=== PATIENT | male | born 1990 | race Caucasian/White ===

== ENCOUNTER 2022-04-13 20:22 | Emergency (ER) | payer OTHER, SELFPAY ==
[2022-04-13 21:05] VITALS: BP 127/86; PULSE 86; RESP 18; TEMP 36.6; O2SAT 98; BMI 27.1
== END 2022-04-14 00:57 | disposition left against medical advice (07) ==
PROVIDERS: Emergency Provider Emergency Medicine
DX: M25.511 Pain in right shoulder (principal)
CPT/HCPCS: 99281

== ENCOUNTER 2022-07-06 10:59 | Emergency (ER) | payer BC, SELFPAY ==
--- NOTE | ~2022-07-06 | XR_ITS ---
EXAMINATION: XR ANKLE, RIGHT XR FOOT, RIGHT CLINICAL INFORMATION: Fall. Right ankle and foot pain. COMPARISON: None TECHNIQUE: AP, mortise, and lateral views of the right ankle. AP, oblique, and lateral views of the right foot. FINDINGS: No displaced fracture. No dislocation. The ankle mortise is maintained. No joint space narrowing or marginal osteophytes. No osseous erosion. No abnormal soft tissue calcification. Mild soft tissue swelling overlying the lateral aspect of the ankle and midfoot. XR/XR foot RT min 3V IMPRESSION: Mild soft tissue swelling overlying the lateral aspect of the ankle and midfoot. No displaced fracture.
--- NOTE | ~2022-07-06 | XR_ITS ---
EXAMINATION: XR ANKLE, RIGHT XR FOOT, RIGHT CLINICAL INFORMATION: Fall. Right ankle and foot pain. COMPARISON: None TECHNIQUE: AP, mortise, and lateral views of the right ankle. AP, oblique, and lateral views of the right foot. FINDINGS: No displaced fracture. No dislocation. The ankle mortise is maintained. No joint space narrowing or marginal osteophytes. No osseous erosion. No abnormal soft tissue calcification. Mild soft tissue swelling overlying the lateral aspect of the ankle and midfoot. XR/XR ankle RT min 3V IMPRESSION: Mild soft tissue swelling overlying the lateral aspect of the ankle and midfoot. No displaced fracture.
[2022-07-06 11:06] VITALS: BP 143/89; PULSE 86; RESP 18; TEMP 36.7; O2SAT 96; BMI 25.7
--- NOTE | 2022-07-06 11:16 | ED.FALL ---
HPI - Fall General Chief Complaint: Extremity Injury, Lower <MARIANO White Last Filed: 07/06/22 11:21> Stated Complaint: R foot inj <MARIANO White Last Filed: 07/06/22 11:21> Time Seen by Provider: 07/06/22 11:57 <MARIANO White Last Filed: 07/06/22 11:21> History of Present Illness HPI Narrative: patient complains of right foot and ankle pain after a fall yesterday with the foot bent underneath him, he fell about 5 ft and twisted his ankle and foot, denies any other injury no back pain no neck pain no headache no loss of consciousness he did not hit his head and denies any other extremity injury <MARIANO Schulte Last Filed: 07/06/22 12:36> Related Data Home Medications: Previous Rx's Medication Instructions Recorded acetaminophen 500 mg tablet 1,000 mg PO QID PRN pain #30 tabs 07/06/22 ibuprofen 600 mg tablet 600 mg PO Q6H PRN pain #20 tabs 07/06/22 oxycodone 5 mg tablet 5 mg PO Q6H PRN pain #10 tabs 07/06/22 <MARIANO White Last Filed: 07/06/22 11:21> Allergies/Adverse Reactions: Allergies Allergy/AdvReac Type Severity Reaction Status Date / Time No Known Allergies Allergy Unverified 04/05/20 19:30 [No Known Allergies*] <MARIANO White Last Filed: 07/06/22 11:21> Review of Systems Review of Systems: positive for right foot and ankle pain Negatives are in no headache no head injury no neck pain no numbness weakness or tingling no back pain no rib pain no chest pain no other extremity injuries, no laceration no numbness no weakness <MARIANO Schulte Last Filed: 07/06/22 12:36> Yes all other systems are reviewed and are negative <MARIANO Schulte Last Filed: 07/06/22 12:36> PMFSH Past Medical History Source: nursing notes reviewed <MARIANO Schulte Last Filed: 07/06/22 12:36> Social History Social History: Social History Advance Directives: Yes Advance Directives Information Provided: Yes Advance Directives on File: No <MARIANO White - Last Filed: 07/06/22 11:21> Physical Exam Vital Signs: Vital Signs: Last Vital Signs Temp 98.1 F 07/06/22 11:06 Pulse 86 07/06/22 11:06 Resp 18 07/06/22 11:06 BP 143/89 H 07/06/22 11:06 Pulse Ox 96 07/06/22 11:06 O2 Del Method 07/06/22 11:06 BMI result Body Mass Index 25.7 <MARIANO White - Last Filed: 07/06/22 11:21> Vital Signs: Last Vital Signs Temp 98.1 F 07/06/22 11:06 Pulse 86 07/06/22 11:06 Resp 18 07/06/22 11:06 BP 143/89 H 07/06/22 11:06 Pulse Ox 96 07/06/22 11:06 O2 Del Method 07/06/22 11:06 BMI result Body Mass Index 25.7 <MARIANO Schulte - Last Filed: 07/06/22 12:36> general appearance no distress Head is normocephalic atraumatic Neck is supple nontender Respiratory no distress The back full range of motion Extremities the right foot and ankle exam the foot has ecchymosis and swelling over the dorsal central foot, there is tenderness in both the medial aspect of the ankle and the whole dorsum of the foot worst in the central foot, ankle has limited range of motion and toes have limited range of motion likely secondary to swelling, sensation is intact distal, skin is intact Other extremities normal <MARIANO Schulte - Last Filed: 07/06/22 12:36> Course Course Course Narrative: RME-11:20pm - 31yoM presenting to the ED c c/o Right foot pain/swelling after he fell yesterday from a retaining wall today when he was messing around with his buddies trying a make a prank on them. Reports that he forgot that the retained wire was there and it was nighttime and he fell down 5 ft. Reports that he might of bumped his forehead although did not lose consciousness. He reports he does not need a scan of his head due to he is not having any headaches or dizziness or any changes in vision or any neurological symptoms. Reports right foot pain/swelling. Denies any other injuries complaints or concerns at this time. Plan: Right foot/ankle Xray ordered. Pt reports he does not need any more imaging <MARIANO White - Last Filed: 07/06/22 11:21> RME-11:20pm - 31yoM presenting to the ED c c/o Right foot pain/swelling after he fell yesterday from a retaining wall today when he was messing around with his buddies trying a make a prank on them. Reports that he forgot that the retained wire was there and it was nighttime and he fell down 5 ft. Reports that he might of bumped his forehead although did not lose consciousness. He reports he does not need a scan of his head due to he is not having any headaches or dizziness or any changes in vision or any neurological symptoms. Reports right foot pain/swelling. Denies any other injuries complaints or concerns at this time. Plan: Right foot/ankle Xray ordered. Pt reports he does not need any more imaging X-rays of right foot and ankle did not reveal any fractures, patient is given Aircast and postop shoe, will follow with orthopedics as needed <MARIANO Schulte - Last Filed: 07/06/22 12:36> Discharge Plan Discharge Clinical Impression: Right foot sprain <MARIANO White Last Filed: 07/06/22 11:21> Patient Disposition: Home, Self-Care <MARIANO White - Last Filed: 07/06/22 11:21> Additional Instructions: x-rays did not show any broken bone Should have improvement within week If not improving follow with orthopedist for re-evaluation Return to the ER any time any worse condition or any concerns Elevate leg apply ice <MARIANO White - Last Filed: 07/06/22 11:21> Prescriptions: New acetaminophen 500 mg tablet 1,000 mg PO QID PRN (Reason: pain) Qty: 30 0RF ibuprofen 600 mg tablet 600 mg PO Q6H PRN (Reason: pain) Qty: 20 0RF oxycodone 5 mg tablet 5 mg PO Q6H PRN (Reason: pain) Qty: 10 0RF Rx Instructions: Partial Fill upon patient request. <MARIANO White Last Filed: 07/06/22 11:21> Referrals: Eze Sharpe MD [Physician] - ( right foot sprain, unable to bear weight) <MARIANO White - Last Filed: 07/06/22 11:21> Stand Alone Forms: Work/School Release <MARIANO White - Last Filed: 07/06/22 11:21>
== END 2022-07-06 12:42 | disposition home or self-care (01) ==
PROVIDERS: Emergency Provider Emergency Medicine
DX: S93.601A Unspecified sprain of right foot, initial encounter (principal); X50.1XXA Overexertion from prolonged static or awkward postures, initial encounter; Y93.9 Activity, unspecified; Y92.9 Unspecified place or not applicable; Y99.9 Unspecified external cause status; Z79.899 Other long term (current) drug therapy
CPT/HCPCS: 73610; 73630; 99282; 99283

== ENCOUNTER 2022-07-31 19:18 | Inpatient (IN) | payer BC, SELFPAY ==
--- NOTE | ~2022-07-31 | XR_ITS ---
EXAMINATION: XR CHEST CLINICAL INFORMATION: Cough. COMPARISON: None TECHNIQUE: Frontal view of the chest was obtained. FINDINGS: The lungs are well-expanded with patchy consolidation left midlung likely infiltrate. Heart size and pulmonary vascularity is normal. There is no pleural effusion or thickening. There is a healed right posterior eighth rib fracture. XR/XR chest 1V IMPRESSION: Patchy consolidation/infiltrate left midlung.
[2022-07-31 19:25] VITALS: BP 122/65; PULSE 139; RESP 20; TEMP 38.6; O2SAT 97; BMI 25.7
--- NOTE | 2022-07-31 19:25 | ED.FEVER ---
HPI - Fever General Chief Complaint: Upper Respiratory Symptoms <Trini Seay NP - Last Filed: 07/31/22 19:27> Stated Complaint: flue like symptoms <Trini Seay NP - Last Filed: 07/31/22 19:27> Time Seen by Provider: 07/31/22 20:33 <Trini Seay NP - Last Filed: 07/31/22 19:27> Source: patient <Carl Josue MD - Last Filed: 07/31/22 23:35> Mode of arrival: ambulatory <Carl Josue MD - Last Filed: 07/31/22 23:35> Limitations: no limitations <Carl Josue MD - Last Filed: 07/31/22 23:35> History of Present Illness HPI Narrative: Patient with history of IV drug use clean for last 3 years presents with 3 days of fever, vomiting, diarrhea, headache, body aches, difficulty breathing, cough. Patient reports unable to maintain PO d/t vomiting and is concerned he might be dehydrated. Patient febrile in triage. Temperature of 101.5 degrees unable to eat much last 2 days abdominal pain vomiting mostly after coughing other family member sick with flu-like symptoms 1 week ago patient has not taken COVID or flu vaccine cough is mostly dry no shortness of breath <Carl Josue MD - Last Filed: 07/31/22 23:35> Related Data Home Medications: Previous Rx's Medication Instructions Recorded acetaminophen 500 mg tablet 1,000 mg PO QID PRN pain #30 tabs 07/06/22 ibuprofen 600 mg tablet 600 mg PO Q6H PRN pain #20 tabs 07/06/22 oxycodone 5 mg tablet 5 mg PO Q6H PRN pain #10 tabs 07/06/22 <Trini Seay NP - Last Filed: 07/31/22 19:27> Allergies/Adverse Reactions: Allergies Allergy/AdvReac Type Severity Reaction Status Date / Time No Known Allergies Allergy Verified 07/31/22 19:28 [No Known Allergies*] <Trini Seay NP - Last Filed: 07/31/22 19:27> Review of Systems Review of Systems: Yes all other systems are reviewed and are negative <Carl Josue MD - Last Filed: 07/31/22 23:35> [facility] Social History Social History: Social History Advance Directives: No Advance Directives Information Provided: No <Trini Seay NP - Last Filed: 07/31/22 19:27> Physical Exam Vital Signs: Vital Signs: Last Vital Signs Temp 100 F 07/31/22 21:39 Pulse 87 07/31/22 21:39 Resp 20 07/31/22 21:39 BP 122/65 07/31/22 19:25 Pulse Ox 97 07/31/22 19:25 O2 Del Method 07/31/22 19:25 BMI result Body Mass Index 25.7 <Trini Seay NP - Last Filed: 07/31/22 19:27> Vital Signs: Last Vital Signs Temp 100 F 07/31/22 21:39 Pulse 87 07/31/22 21:39 Resp 20 07/31/22 21:39 BP 122/65 07/31/22 19:25 Pulse Ox 97 07/31/22 19:25 O2 Del Method 07/31/22 19:25 BMI result Body Mass Index 25.7 <Carl Josue MD - Last Filed: 07/31/22 23:35> Appearance: Alert. Oriented X3. No acute distress. Eyes: PERRLA, No Nystagmus ENT: Pharynx normal. Oral Mucosa moist no exudate Neck: Normal inspection. Neck supple. No cervical lymphadenopathy CVS: Normal heart rate and rhythm. Pulses normal. Respiratory: No respiratory distress. Equal air entry bilateral, no wheezing/rales/rhonchi Abdomen: Soft and nontender. Bowel sounds are present, no mass palpable, no CVA tenderness Skin: Skin warm and dry. Normal skin color. Normal skin turgor. Extremities: No lower extremity edema. No calf tenderness Neuro: Oriented X 3. No motor deficit. No sensory deficit.No cerebellar signs , cranial nerves II-XII intact <Carl Josue MD - Last Filed: 07/31/22 23:35> Course Course Course Narrative: This is a rapid medical exam. Defer additional HPI, ROS, PE to primary provider. 31-year-old male no medical history presents with 3 days of fever, vomiting, diarrhea, headache, body aches, difficulty breathing, cough. Patient reports unable to maintain PO d/t vomiting and is concerned he might be dehydrated. Patient febrile in triage. Will obtain testing for flu, COVID, RSV, labs. Patient be given sublingual Zofran, Tylenol. <Trini Seay NP - Last Filed: 07/31/22 19:27> Medications Administered Generic Name Dose Route Start Last Admin Trade Name Freq PRN Reason Stop Dose Admin Azithromycin 500 mg/ Sodium 250 mls @ 125 mls/hr 07/31/22 22:02 07/31/22 23:22 Chloride IV 08/01/22 00:01 125 mls/hr ONCE ONE Administration Discontinued Medications Generic Name Dose Route Start Last Admin Trade Name Freq PRN Reason Stop Dose Admin Acetaminophen 650 mg 07/31/22 19:26 07/31/22 19:30 Acetaminophen 325 Mg Tablet PO 07/31/22 19:27 650 mg ONCE ONE Administration Sodium Chloride 1,000 mls @ 999 mls/hr 07/31/22 19:47 07/31/22 22:27 Ns IV 07/31/22 20:47 Infused .Q1H1M STA Infusion Sodium Chloride 1,000 mls @ 999 mls/hr 07/31/22 20:34 07/31/22 22:21 Ns IV 07/31/22 21:34 999 mls/hr .Q1H1M ONE Administration Potassium Chloride 10 meq in 100 mls @ 100 mls/hr 07/31/22 21:37 07/31/22 22:21 Potassium Chloride/H20 IV 07/31/22 22:36 100 mls/hr ONCE ONE Administration Sodium Chloride 1,000 mls @ 999 mls/hr 07/31/22 22:00 07/31/22 23:22 Ns IV 07/31/22 23:00 999 mls/hr .Q1H1M ONE Administration Ceftriaxone Sodium 1 gm/ 50 mls @ 100 mls/hr 07/31/22 22:01 07/31/22 22:43 Sodium Chloride IV 07/31/22 22:30 100 mls/hr ONCE ONE Administration Ketorolac Tromethamine 15 mg 07/31/22 19:48 07/31/22 20:52 Ketorolac Tromethamine 15 Mg/Ml Vial IVPUSH 07/31/22 19:49 15 mg ONCE ONE Administration Ondansetron HCl 4 mg 07/31/22 19:26 07/31/22 19:30 Ondansetron Odt 4 Mg Tab.Rapdis TRANSLINGU 07/31/22 19:27 4 mg ONCE ONE Administration Potassium Bicarbonate 25 meq 07/31/22 21:37 07/31/22 22:22 Potassium Bicarbonate/Cit Ac 25 Meq Tablet.Eff PO 07/31/22 21:38 25 meq ONCE ONE Administration <Trini Seay SET DESIGNER - Last Filed: 07/31/22 19:27> Medications Administered Generic Name Dose Route Start Last Admin Trade Name Freq PRN Reason Stop Dose Admin Azithromycin 500 mg/ Sodium 250 mls @ 125 mls/hr 07/31/22 22:02 07/31/22 23:22 Chloride IV 08/01/22 00:01 125 mls/hr ONCE ONE Administration Discontinued Medications Generic Name Dose Route Start Last Admin Trade Name Freq PRN Reason Stop Dose Admin Acetaminophen 650 mg 07/31/22 19:26 07/31/22 19:30 Acetaminophen 325 Mg Tablet PO 07/31/22 19:27 650 mg ONCE ONE Administration Sodium Chloride 1,000 mls @ 999 mls/hr 07/31/22 19:47 07/31/22 22:27 Ns IV 07/31/22 20:47 Infused .Q1H1M STA Infusion Sodium Chloride 1,000 mls @ 999 mls/hr 07/31/22 20:34 07/31/22 22:21 Ns IV 07/31/22 21:34 999 mls/hr .Q1H1M ONE Administration Potassium Chloride 10 meq in 100 mls @ 100 mls/hr 07/31/22 21:37 07/31/22 22:21 Potassium Chloride/H20 IV 07/31/22 22:36 100 mls/hr ONCE ONE Administration Sodium Chloride 1,000 mls @ 999 mls/hr 07/31/22 22:00 07/31/22 23:22 Ns IV 07/31/22 23:00 999 mls/hr .Q1H1M ONE Administration Ceftriaxone Sodium 1 gm/ 50 mls @ 100 mls/hr 07/31/22 22:01 07/31/22 22:43 Sodium Chloride IV 07/31/22 22:30 100 mls/hr ONCE ONE Administration Ketorolac Tromethamine 15 mg 07/31/22 19:48 07/31/22 20:52 Ketorolac Tromethamine 15 Mg/Ml Vial IVPUSH 07/31/22 19:49 15 mg ONCE ONE Administration Ondansetron HCl 4 mg 07/31/22 19:26 07/31/22 19:30 Ondansetron Odt 4 Mg Tab.Rapdis TRANSLINGU 07/31/22 19:27 4 mg ONCE ONE Administration Potassium Bicarbonate 25 meq 07/31/22 21:37 07/31/22 22:22 Potassium Bicarbonate/Cit Ac 25 Meq Tablet.Eff PO 07/31/22 21:38 25 meq ONCE ONE Administration <Carl Josue MD - Last Filed: 07/31/22 23:35> Medical Decision Making Medical Decision Making [facility] Narrative: 2300 PATIENT CAME WITH FEVER COUGH NAUSEA VOMITING SUSPECTED TO BE INFLUENZA BUT INFLUENZA COVID AND RSV NEGATIVE CHEST X-RAY SHOWED LEFT UPPER LOBE PNEUMONIA BLOOD CULTURES LACTIC ACID WERE DRAWN PATIENT RECEIVED IV ANTIBIOTIC ROCEPHIN AND ZITHROMAX FLUIDS WERE GIVEN ADMITTED FOR PNEUMONIA LEUKOCYTOSIS AND FEVER <Carl Josue MD - Last Filed: 07/31/22 23:35> Lab Data [facility] Lab Attestation statement: I reviewed the patient's lab results. <Carl Josue MD - Last Filed: 07/31/22 23:35> Result Diagrams: 07/31/22 20:10 07/31/22 20:10 <Tirni Seay NP - Last Filed: 07/31/22 19:27> Labs: Lab Results 07/31/22 07/31/22 07/31/22 Range/Units 19:55 20:10 20:10 WBC 29.9 H (4.8-10.8) X10*3/uL RBC 3.56 L (4.60-5.80) X10*6/uL Hgb 14.3 (14.0-18.0) g/dl Hct 38.7 L (42.0-52.0) % MCV 108.7 H (80.0-98.0) fL MCH 40.2 H (27.0-33.0) pg MCHC 37.0 H (31.0-36.0) g/dl RDW 12.7 (11.0-16.0) % Plt Count 183 (160-400) X10*3/uL MPV 11.0 (9.4-12.4) fL Immature Gran % (Auto) 0.6 H (0.0-0.4) % Neut % (Auto) 90.4 H (45-73) % Lymph % (Auto) 1.9 L (20-40) % Hand % (Auto) 6.6 (2-11) % Eos % (Auto) 0.2 (0-4) % Baso % (Auto) 0.3 (0-2) % Lymph # (Auto) 0.6 L (1.2-4.9) X10*3/uL Hand # (Auto) 2.0 H (0.1-1.2) X10*3/uL Eos # (Auto) 0.1 (0.0-0.4) X10*3/uL Baso # (Auto) 0.1 (0.0-0.2) X10*3/uL Abs Immat Gran (auto) 0.18 H (0.00-0.03) X10*3/uL Absolute Neuts (auto) 27.1 H (2.0-8.3) x10*3/uL Absolute Nucleated RBC 0.000 (0.0-0.012) X10*3/uL Nucleated RBC % (auto) 0.0 (0.0-0.2) /100WBC Sodium 135 (135-145) mmol/L Potassium 2.8 L (3.3-5.1) mmol/L Chloride 94 L (96-108) mmol/L Carbon Dioxide 22 (22-29) mmol/L Anion Gap 22 H (12-20) BUN 6 L (9-16) mg/dL Creatinine 0.86 (0.5-1.4) mg/dL Estim Creat Clear Calc 134.0 Estimated GFR > 60 Random Glucose 147 H (60-115) mg/dL Lactic Acid (0.5-2.0) mmol/L Calcium 7.7 L (8.4-10.2) mg/dL Total Bilirubin 2.2 H (0.0-1.0) mg/dL Direct Bilirubin 1.0 H (0.0-0.5) mg/dL AST 95 H (5-37) U/L ALT 41 H (0-40) U/L Alkaline Phosphatase 205 H (39-117) U/L Total Protein 7.6 (6.5-8.0) g/dL Albumin 3.9 (3.5-5.0) g/dL Influenza Type A (PCR) NEGATIVE (Negative) Influenza Type B (PCR) NEGATIVE (Negative) RSV RNA Qual (PCR) NEGATIVE (Negative) SARS-CoV-2 RNA (RT-PCR) NEGATIVE (Negative) S. pyogenes GrpA [place] (Negative) 07/31/22 07/31/22 Range/Units 20:52 22:19 WBC (4.8-10.8) X10*3/uL RBC (4.60-5.80) X10*6/uL Hgb (14.0-18.0) g/dl Hct (42.0-52.0) % MCV (80.0-98.0) fL MCH (27.0-33.0) pg MCHC (31.0-36.0) g/dl RDW (11.0-16.0) % Plt Count (160-400) X10*3/uL MPV (9.4-12.4) fL Immature Gran % (Auto) (0.0-0.4) % Neut % (Auto) (45-73) % Lymph % (Auto) (20-40) % Hand % (Auto) (2-11) % Eos % (Auto) (0-4) % Baso % (Auto) (0-2) % Lymph # (Auto) (1.2-4.9) X10*3/uL Hand # (Auto) (0.1-1.2) X10*3/uL Eos # (Auto) (0.0-0.4) X10*3/uL Baso # (Auto) (0.0-0.2) X10*3/uL Abs Immat Gran (auto) (0.00-0.03) X10*3/uL Absolute Neuts (auto) (2.0-8.3) x10*3/uL Absolute Nucleated RBC (0.0-0.012) X10*3/uL Nucleated RBC % (auto) (0.0-0.2) /100WBC Sodium (135-145) mmol/L Potassium (3.3-5.1) mmol/L Chloride (96-108) mmol/L Carbon Dioxide (22-29) mmol/L Anion Gap (12-20) BUN (9-16) mg/dL Creatinine (0.5-1.4) mg/dL Estim Creat Clear Calc Estimated GFR Random Glucose (60-115) mg/dL Lactic Acid 1.4 (0.5-2.0) mmol/L Calcium (8.4-10.2) mg/dL Total Bilirubin (0.0-1.0) mg/dL Direct Bilirubin (0.0-0.5) mg/dL AST (5-37) U/L ALT (0-40) U/L Alkaline Phosphatase (39-117) U/L Total Protein (6.5-8.0) g/dL Albumin (3.5-5.0) g/dL Influenza Type A (PCR) (Negative) Influenza Type B (PCR) (Negative) RSV RNA Qual (PCR) (Negative) SARS-CoV-2 RNA (RT-PCR) (Negative) S. pyogenes GrpA [place] Negative (Negative) <Trini Seay, SET DESIGNER - Last Filed: 07/31/22 19:27> Lab Results 07/31/22 07/31/22 07/31/22 Range/Units 19:55 20:10 20:10 WBC 29.9 H (4.8-10.8) X10*3/uL RBC 3.56 L (4.60-5.80) X10*6/uL Hgb 14.3 (14.0-18.0) g/dl Hct 38.7 L (42.0-52.0) % MCV 108.7 H (80.0-98.0) fL MCH 40.2 H (27.0-33.0) pg MCHC 37.0 H (31.0-36.0) g/dl RDW 12.7 (11.0-16.0) % Plt Count 183 (160-400) X10*3/uL MPV 11.0 (9.4-12.4) fL Immature Gran % (Auto) 0.6 H (0.0-0.4) % Neut % (Auto) 90.4 H (45-73) % Lymph % (Auto) 1.9 L (20-40) % Hand % (Auto) 6.6 (2-11) % Eos % (Auto) 0.2 (0-4) % Baso % (Auto) 0.3 (0-2) % Lymph # (Auto) 0.6 L (1.2-4.9) X10*3/uL Hand # (Auto) 2.0 H (0.1-1.2) X10*3/uL Eos # (Auto) 0.1 (0.0-0.4) X10*3/uL Baso # (Auto) 0.1 (0.0-0.2) X10*3/uL Abs Immat Gran (auto) 0.18 H (0.00-0.03) X10*3/uL Absolute Neuts (auto) 27.1 H (2.0-8.3) x10*3/uL Absolute Nucleated RBC 0.000 (0.0-0.012) X10*3/uL Nucleated RBC % (auto) 0.0 (0.0-0.2) /100WBC Sodium 135 (135-145) mmol/L Potassium 2.8 L (3.3-5.1) mmol/L Chloride 94 L (96-108) mmol/L Carbon Dioxide 22 (22-29) mmol/L Anion Gap 22 H (12-20) BUN 6 L (9-16) mg/dL Creatinine 0.86 (0.5-1.4) mg/dL Estim Creat Clear Calc 134.0 Estimated GFR > 60 Random Glucose 147 H (60-115) mg/dL Lactic Acid (0.5-2.0) mmol/L Calcium 7.7 L (8.4-10.2) mg/dL Total Bilirubin 2.2 H (0.0-1.0) mg/dL Direct Bilirubin 1.0 H (0.0-0.5) mg/dL AST 95 H (5-37) U/L ALT 41 H (0-40) U/L Alkaline Phosphatase 205 H (39-117) U/L Total Protein 7.6 (6.5-8.0) g/dL Albumin 3.9 (3.5-5.0) g/dL Influenza Type A (PCR) NEGATIVE (Negative) Influenza Type B (PCR) NEGATIVE (Negative) RSV RNA Qual (PCR) NEGATIVE (Negative) SARS-CoV-2 RNA (RT-PCR) NEGATIVE (Negative) S. pyogenes GrpA [place] (Negative) 07/31/22 07/31/22 Range/Units 20:52 22:19 WBC (4.8-10.8) X10*3/uL RBC (4.60-5.80) X10*6/uL Hgb (14.0-18.0) g/dl Hct (42.0-52.0) % MCV (80.0-98.0) fL MCH (27.0-33.0) pg MCHC (31.0-36.0) g/dl RDW (11.0-16.0) % Plt Count (160-400) X10*3/uL MPV (9.4-12.4) fL Immature Gran % (Auto) (0.0-0.4) % Neut % (Auto) (45-73) % Lymph % (Auto) (20-40) % Hand % (Auto) (2-11) % Eos % (Auto) (0-4) % Baso % (Auto) (0-2) % Lymph # (Auto) (1.2-4.9) X10*3/uL Hand # (Auto) (0.1-1.2) X10*3/uL Eos # (Auto) (0.0-0.4) X10*3/uL Baso # (Auto) (0.0-0.2) X10*3/uL Abs Immat Gran (auto) (0.00-0.03) X10*3/uL Absolute Neuts (auto) (2.0-8.3) x10*3/uL Absolute Nucleated RBC (0.0-0.012) X10*3/uL Nucleated RBC % (auto) (0.0-0.2) /100WBC Sodium (135-145) mmol/L Potassium (3.3-5.1) mmol/L Chloride (96-108) mmol/L Carbon Dioxide (22-29) mmol/L Anion Gap (12-20) BUN (9-16) mg/dL Creatinine (0.5-1.4) mg/dL Estim Creat Clear Calc Estimated GFR Random Glucose (60-115) mg/dL Lactic Acid 1.4 (0.5-2.0) mmol/L Calcium (8.4-10.2) mg/dL Total Bilirubin (0.0-1.0) mg/dL Direct Bilirubin (0.0-0.5) mg/dL AST (5-37) U/L ALT (0-40) U/L Alkaline Phosphatase (39-117) U/L Total Protein (6.5-8.0) g/dL Albumin (3.5-5.0) g/dL Influenza Type A (PCR) (Negative) Influenza Type B (PCR) (Negative) RSV RNA Qual (PCR) (Negative) SARS-CoV-2 RNA (RT-PCR) (Negative) S. pyogenes GrpA [place] Negative (Negative) <Carl Josue MD - Last Filed: 07/31/22 23:35> Discharge Plan Discharge Clinical Impression: Pneumonia, Acute hypokalemia, Gastroenteritis <Trini Seay NP - Last Filed: 07/31/22 19:27> Patient Disposition: Admitted As Inpatient <Trini Seay NP - Last Filed: 07/31/22 19:27>
[2022-07-31] MEDS: Ondansetron ODT 4 MG TAB.RAPDIS TRANSLINGU (19:30)
[2022-07-31] MEDS: Acetaminophen 325 MG TABLET 650 MG PO (19:30)
--- OUTSIDE RECORDS SUMMARY | 2022-07-31 20:00 | XMS_ITS ---
:1990 Author Care Team Providers Name Role Phone Patient_import Primary Care Provider Unavailable Allergies Code Code System Name Reaction Severity Status Onset NKDA ? Medications Name Status Start Date Stop Date ? ? acetaminophen 500 mg tablet Active ? Not available albuterol sulfate HFA 90 mcg/actuation aerosol Active ? Not available inhaler amoxicillin 500 mg capsule Completed ? 01/24 amoxicillin 500 mg tablet Completed ? 2020 amoxicillin 875 mg-potassium clavulanate 125 mg Completed ? 01/24/2021 tablet benzonatate 100 mg capsule Completed ? 01/24 chlorhexidine gluconate 0.12 % mouthwash Completed ? 01/24/2021 Flovent HFA 110 mcg/actuation aerosol inhaler Completed ? 01/24/2021 ibuprofen 600 mg tablet Completed ? 01/25/20 Narcan 4 mg/actuation nasal spray Completed ? 01/24/2021 ondansetron HCl 4 mg tablet Completed ? 02/2021 oxycodone 5 mg tablet Completed ? 01/24/2021 oxycodone-acetaminophen 5 mg-325 mg tablet Completed ? 01/24/2021 Sublocade 100 mg/0.5 mL solution,extended release subcutaneous s yringe Active ? Not available Inject 0.5 mL every month by subcutaneous route. Suboxone 12 mg-3 mg sublingual film Completed ? 01/24/2021 Suboxone 4 mg-1 mg sublingual film Active ? Not available Place 1 film every day by sublingual route. Suboxone 8 mg-2 mg sublingual film Active ? Not available Place 1 film every day by sublingual route. Tylenol Completed 10/06/2018 01/24/2021 Problems Name Status Onset Date Source ? Anxiety Active 10/06/2018 History Opioid Dependence Active 10/06/2018 History Attention Deficit Hyperactivity Disorder Active 019 History Chronic Hepatitis C Active 10/20/2018 History Nicotine Dependence with Current Use Active 03/21/2021 History Notes: ADHD NOT DIAGNOSED BUT PT THINK S HE HAS IT AND IS SEEKING EVALUATION/DIAGNOSIS Procedures Notes: HAD ABDOMINAL SURGERY A NEWB ORN Results Lab Results Date Name Specimen Result Interpretation Description Value Range Status Address ? 04/29/2022 Drug UR ? Amphetamines negative NG/mL 1,000 Final [facility] Screen, NG/mL Health: Urine [address], [place] ? ? UR ? Benzodiazapines negative NG/mL 200 Final [facility] NG/mL Health: [address], [place] ? ? UR ABNORMAL Buprenorphine negative NG/mL 5 Final [facility] NG/mL Health: [address], [place] ? ? UR ? Cocaine negative NG/mL 150 Final [facility] Metabolite NG/mL Health : [address], [place] ? ? UR ? Opiates negative NG/mL 300 Final [facility] NG/mL Health: [address], [place] ? ? UR ? Oxycodone negative NG/mL 300 Final [facility] NG/mL Health: [address], [place] ? ? UR ? Fentanyl negative NG/mL 2 Final [facility] NG/mL Health: [address], [place] ? ? UR ? Ethyl Alcohol negative mg/dL 10 F inal [facility] mg/dL Health: [address], [place] ? ? UR ? Methadone negative NG/mL 300 Final [facility] Metabolite NG/mL Health : [address], [place] ? ? UR ABNORMAL Cannabinoids positive NG/mL 50 Final [facility] (THC) NG/mL Health: [address], [place] ? ? UR ? Urine Creatinine 277.0 mg/dL >20 F inal [facility] mg/dL Health: [address], [place] ? ? UR ? Urine pH 5.90 4.5-9. Final [facility] 0 Health: [address], [place] ? ? UR High Specific Mammoth 1.045 1.003- Final [facility] 1.035 Health: [address], [place] 04/29/2022 Opiates, UR ? 6-Acetylmorphine negative NG/mL 10 Final [facility] Quantita NG/mL Health: tive, [address], [place] ? ? UR ? Codeine negative NG/mL 50 Final [facility] NG/mL Health: [address], [place] ? ? UR ? Hydrocodone negative NG/mL 50 [place] [facility] NG/mL Health: [address], [place] ? ? UR ? Hydromorphone negative NG/mL 50 F inal [facility] NG/mL Health: [address], [place] ? ? UR ? Morphine negative NG/mL 50 Final [facility] NG/mL Health: [address], [place] ? ? UR ? Norhydrocodone negative NG/mL 100 Final [facility] NG/mL Health: [address], [place] ? ? UR ? Fentanyl negative NG/mL 20 Final [facility] NG/mL Health: [address], [place] ? ? UR ? Norfentanyl negative NG/mL 20 Fin [place] [facility] NG/mL Health: [address], [place] ? ? UR ? Tramadol negative NG/mL 100 Final [facility] NG/mL Health: [address], [place] ? ? UR ? Legend abbreviations ? Final Sa michelle Health: [address], [place] ? ? UR ? Billing Only billing only ? Lynsey l [facility] ([id number]) Health: [address], [place] 04/29/2022 Drug UR ? Buprenorphine 27.7 NG/mL 10 F inal [facility] Confirma NG/mL Health: tion, [address], [place] ? ? UR ABNORMAL Norbuprenorphine negative NG/mL 10 Final [facility] NG/mL Health: [address], [place] ? ? UR ? Legend abbreviations ? Final Sa michelle Health: [address], [place] 03/31/2022 Drug UR ? Amphetamines negative NG/mL 1,000 Final [facility] Screen, NG/mL Health: Urine [address], [place] ? ? UR ? Benzodiazapines negative NG/mL 200 Final [facility] NG/mL Health: [address], [place] ? ? UR ABNORMAL Buprenorphine negative NG/mL 5 Final [facility] NG/mL Health: [address], [place] ? ? UR ? Cocaine negative NG/mL 150 Final [facility] Metabolite NG/mL Health : [address], [place] ? ? UR ? Opiates negative NG/mL 300 Final [facility] NG/mL Health: [address], [place] ? ? UR ? Oxycodone negative NG/mL 300 Final [facility] NG/mL Health: [address] ? ? UR ? Fentanyl negative NG/mL 2 Final [facility] NG/mL Health: [address], [place] ? ? UR ABNORMAL Ethyl Alcohol positive mg/dL 10 Final [facility] mg/dL Health: [address], [place] ? ? UR ? Methadone negative NG/mL 300 Final [facility] Metabolite NG/mL Health : [address], [place] ? ? UR ABNORMAL Cannabinoids positive NG/mL 50 Final [facility] (THC) NG/mL Health: [address], [place] ? ? UR ? Urine Creatinine 380.6 mg/dL >20 F inal [facility] mg/dL Health: [address], [place] ? ? UR ? Urine pH 5.70 4.5-9. Final [facility] 0 Health: [address] ? ? UR ? Specific Mammoth 1.026 1.003- Final [facility] 1.035 Health: [address] [place] 03/31/2022 Opiates, UR ? 6-Acetylmorphine negative NG/mL 10 Final [facility] Quantita NG/mL Health: tive, 12 [address], [place] ? ? UR ? Codeine negative NG/mL 50 Final [facility] NG/mL Health: [address], [place] ? ? UR ? Hydrocodone negative NG/mL 50 [place] [facility] NG/mL Health: [address], [place] ? ? UR ? Hydromorphone negative NG/mL 50 F inal [facility] NG/mL Health: [address], [place] ? ? UR ? Morphine negative NG/mL 50 Final [facility] NG/mL Health: [address], [place] ? ? UR ? Norhydrocodone negative NG/mL 100 Final [facility] NG/mL Health: [address], [place] ? ? UR ? Fentanyl negative NG/mL 20 Final [facility] NG/mL Health: [address], [place] ? ? UR ? Norfentanyl negative NG/mL 20 [place] [facility] NG/mL Health: [address], [place] ? ? UR ? Tramadol negative NG/mL 100 Final [facility] NG/mL Health: [address], [place] ? ? UR ? Legend abbreviations ? Final Sa michelle Health: [address], [place] ? ? UR ? Billing Only billing only ? Lynsey l [facility] ([id number]) Health: [address], [place] 03/31/2022 Drug UR ? Buprenorphine 75.0 NG/mL 10 F inal [facility] Confirma NG/mL Health: tion, 12 [address], [place] ? ? UR ? Norbuprenorphine 13.4 NG/mL 10 Fi nal [facility] NG/mL Health: [address], [place] ? ? UR ? Legend abbreviations ? Final Sa michelle Health: [address] 03/03/2022 Drug UR ? Amphetamines negative NG/mL 1,000 Final [facility] Screen, NG/mL Health: Urine [address], [place] ? ? UR ? Benzodiazapines negative NG/mL 200 Final [facility] NG/mL Health: [address], [place] ? ? UR ? Buprenorphine positive NG/mL 5 F inal [facility] NG/mL Health: [address], [place] ? ? UR ? Cocaine negative NG/mL 150 Final [facility] Metabolite NG/mL Health : [address], [place] ? ? UR ? Opiates negative NG/mL 300 Final [facility] NG/mL Health: [address], [place] ? ? UR ? Oxycodone negative NG/mL 300 Final [facility] NG/mL Health: [address], [place] ? ? UR ? Fentanyl negative NG/mL 2 Final [facility] NG/mL Health: [address], [place] ? ? UR ABNORMAL Ethyl Alcohol positive mg/dL 10 Final [facility] mg/dL Health: [address], [place] ? ? UR ? Methadone negative NG/mL 300 Final [facility] Metabolite NG/mL Health : [address], [place] ? ? UR ABNORMAL Cannabinoids positive NG/mL 50 Final [facility] (THC) NG/mL Health: [address], [place] ? ? UR ? Urine Creatinine 284.0 mg/dL >20 F inal [facility] mg/dL Health: [address], [place] ? ? UR ? Urine pH 5.60 4.5-9. Final [facility] 0 Health: [address], [place] ? ? UR ? Specific Mammoth 1.033 1.003- Final [facility] 1.035 Health: [address], [place] 03/03/2022 Drug UR ? Buprenorphine 198.6 NG/mL 10 Final [facility] Confirma NG/mL Health: tion, [address], [place] ? ? UR ? Norbuprenorphine 14.6 NG/mL 10 Fi nal [facility] NG/mL Health: [address], [place] ? ? UR ? Legend abbreviations ? Final Sa michelle Health: [address], [place] ? ? UR ? Billing Only billing only ? Lynsey l [facility] ([id number]) Health: [address], [place] 02/03/2022 Drug UR ? Amphetamines negative NG/mL 1,000 Final [facility] Screen, NG/mL Health: Urine [address], [place] ? ? UR ? Benzodiazapines negative NG/mL 200 Final [facility] NG/mL Health: [address], [place] ? ? UR ? Buprenorphine positive NG/mL 5 F inal [facility] NG/mL Health: [address], [place] ? ? UR ? Cocaine negative NG/mL 150 Final [facility] Metabolite NG/mL Health : [address], [place] ? ? UR ? Opiates negative NG/mL 300 Final [facility] NG/mL Health: [address], [place] ? ? UR ? Oxycodone negative NG/mL 300 Final [facility] NG/mL Health: [address], [place] ? ? UR ? Fentanyl negative NG/mL 2 Final [facility] NG/mL Health: [address], [place] ? ? UR ABNORMAL Ethyl Alcohol positive mg/dL 10 Final [facility] mg/dL Health: [address], [place] ? ? UR ? Methadone negative NG/mL 300 Final [facility] Metabolite NG/mL Health : [address], [place] ? ? UR ABNORMAL Cannabinoids positive NG/mL 50 Final [facility] (THC) NG/mL Health: [address], [place] ? ? UR ? Urine Creatinine >400, >400 >20 Fi nal [facility] mg/dL mg/dL Health: [address], [place] ? ? UR ? Urine pH 5.80 4.5-9. Final [facility] 0 Health: [address], [place] ? ? UR ? Specific Mammoth 1.035 1.003- Final [facility] 1.035 Health: [address], [place] 02/03/2022 Drug UR ? Buprenorphine 408.6 NG/mL 10 Final [facility] Confirma NG/mL Health: tion, 12 [address], [place] ? ? UR ? Norbuprenorphine 48.2 NG/mL 10 Fi nal [facility] NG/mL Health: [address], [place] ? ? UR ? Legend abbreviations ? Final Sa michelle Health: [address], [place] ? ? UR ? Billing Only billing only ? Lynsey l [facility] ([id number]) Health: [address] [place] 01/02/2022 Drug UR ? Amphetamines negative NG/mL 1,000 Final [facility] Screen, NG/mL Health: Urine [address], [place] ? ? UR ? Benzodiazapines negative NG/mL 200 Final [facility] NG/mL Health: [address], [place] ? ? UR ? Buprenorphine positive NG/mL 5 F inal [facility] NG/mL Health: [address], [place] ? ? UR ? Cocaine negative NG/mL 150 Final [facility] Metabolite NG/mL Health : [address], [place] ? ? UR ? Opiates negative NG/mL 300 Final [facility] NG/mL Health: [address], [place] ? ? UR ? Oxycodone negative NG/mL 300 Final [facility] NG/mL Health: [address], [place] ? ? UR ? Fentanyl negative NG/mL 2 Final [facility] NG/mL Health: [address], [place] ? ? UR ABNORMAL Ethyl Alcohol positive mg/dL 10 Final [facility] mg/dL Health: [address], [place] ? ? UR ? Methadone negative NG/mL 300 Final [facility] Metabolite NG/mL Health : [address], [place] ? ? UR ABNORMAL Cannabinoids positive NG/mL 50 Final [facility] (THC) NG/mL Health: [address], [place] ? ? UR ? Urine Creatinine 340.3 mg/dL >20 F inal [facility] mg/dL Health: [address], [place] ? ? UR ? Urine pH 5.70 4.5-9. Final [facility] 0 Health: [address], [place] ? ? UR ? Specific Mammoth 1.024 1.003- Final [facility] 1.035 Health: [address] 01/02/2022 Drug UR ? Buprenorphine 91.7 NG/mL 10 F inal [facility] Confirma NG/mL Health: tion, 12 [address], [place] ? ? UR ? Norbuprenorphine 46.0 NG/mL 10 Fi nal [facility] NG/mL Health: [address], [place] ? ? UR ? Legend abbreviations ? Final Sa michelle Health: [address], [place] ? ? UR ? Billing Only billing only ? Lynsey tomas [facility] ([id number]) Health: [address] 12/04/2021 Drug UR ? Amphetamines negative NG/mL 1,000 Final [facility] Screen, NG/mL Health: Urine [address], [place] ? ? UR ? Benzodiazapines negative NG/mL 200 Final [facility] NG/mL Health: [address], [place] ? ? UR ? Buprenorphine positive NG/mL 5 F inal [facility] NG/mL Health: [address], [place] ? ? UR ? Cocaine negative NG/mL 150 Final [facility] Metabolite NG/mL Health : [address], [place] ? ? UR ? Opiates negative NG/mL 300 Final [facility] NG/mL Health: [address], [place] ? ? UR ? Oxycodone negative NG/mL 300 Final [facility] NG/mL Health: [address], [place] ? ? UR ? Fentanyl negative NG/mL 2 Final [facility] NG/mL Health: [address], [place] ? ? UR ABNORMAL Ethyl Alcohol positive mg/dL 10 Final [facility] mg/dL Health: [address], [place] ? ? UR ? Methadone negative NG/mL 300 Final [facility] Metabolite NG/mL Health : [address], [place] ? ? UR ABNORMAL Cannabinoids positive NG/mL 50 Final [facility] (THC) NG/mL Health: [address], [place] ? ? UR ? Urine Creatinine 287.5 mg/dL >20 F inal [facility] mg/dL Health: [address], [place] ? ? UR ? Urine pH 6.00 4.5-9. Final [facility] 0 Health: [address], [place] ? ? UR ? Specific Mammoth 1.034 1.003- Final [facility] 1.035 Health: [address] [place] 12/04/2021 Drug UR ? Buprenorphine 351.7 NG/mL 10 Final [facility] Confirma NG/mL Health: tion, 12 [address], [place] ? ? UR ? Norbuprenorphine 44.3 NG/mL 10 Fi nal [facility] NG/mL Health: [address], [place] ? ? UR ? Legend abbreviations ? Final Sa michelle Health: [address], [place] ? ? UR ? Billing Only billing only ? Lynsey l [facility] ([id number]) Health: [address] 11/05/2021 Drug UR ? Amphetamines negative NG/mL 1,000 Final [facility] Screen, NG/mL Health: Urine [address], [place] ? ? UR ? Benzodiazapines negative NG/mL 200 Final [facility] NG/mL Health: [address], [place] ? ? UR ? Buprenorphine positive NG/mL 5 F inal [facility] NG/mL Health: [address], [place] ? ? UR ? Cocaine negative NG/mL 150 Final [facility] Metabolite NG/mL Health : [address], [place] ? ? UR ? Opiates negative NG/mL 300 Final [facility] NG/mL Health: [address], [place] ? ? UR ? Oxycodone negative NG/mL 300 Final [facility] NG/mL Health: [address], [place] ? ? UR ABNORMAL Fentanyl positive NG/mL 2 Lynsey l [facility] NG/mL Health: [address], [place] ? ? UR ? Ethyl Alcohol negative mg/dL 10 F inal [facility] mg/dL Health: [address], [place] ? ? UR ? Methadone negative NG/mL 300 Final [facility] Metabolite NG/mL Health : [address], [place] ? ? UR ? Cannabinoids negative NG/mL 50 Fi nal [facility] (THC) NG/mL Health: [address], [place] ? ? UR ? Urine Creatinine 248.6 mg/dL >20 F inal [facility] mg/dL Health: [address], [place] ? ? UR ? Urine pH 5.60 4.5-9. Final [facility] 0 Health: [address], [place] ? ? UR ? Specific Mammoth 1.025 1.003- Final [facility] 1.035 Health: [address] 11/05/2021 Drug UR ? Buprenorphine atr NG/mL 20 Fi nal [facility] Confirma NG/mL Health: tion, 12 [address], [place] ? ? UR ? Norbuprenorphine atr NG/mL 50 Fin al [facility] NG/mL Health: [address], [place] ? ? UR ? Legend abbreviations ? Final Sa michelle Health: [address], [place] ? ? UR ? Billing Only billing only ? Lynsey l [facility] ([id number]) Health: [address] 11/05/2021 Opiates, UR ? 6-Acetylmorphine negative NG/mL 10 Final [facility] Quantita NG/mL Health: tive, 12 [address], [place] ? ? UR ? Codeine negative NG/mL 50 Final [facility] NG/mL Health: [address], [place] ? ? UR ? Hydrocodone negative NG/mL 50 Fin al [facility] NG/mL Health: [address], [place] ? ? UR ? Hydromorphone negative NG/mL 50 F inal [facility] NG/mL Health: [address], [place] ? ? UR ? Morphine negative NG/mL 50 Final [facility] NG/mL Health: [address], [place] ? ? UR ? Norhydrocodone negative NG/mL 100 Final [facility] NG/mL Health: [address], [place] ? ? UR ? Fentanyl negative NG/mL 20 Final [facility] NG/mL Health: [address], [place] ? ? UR ? Norfentanyl negative NG/mL 20 Fin al [facility] NG/mL Health: [address], [place] ? ? UR ? Tramadol negative NG/mL 100 Final [facility] NG/mL Health: [address], [place] ? ? UR ? Legend abbreviations ? Final Sa michelle Health: [address] [place] 11/05/2021 Drug ? Buprenorphine 573.4 NG/mL 10 Final [facility] Confirma NG/mL Health: tion, [address], [place] ? ? ? Norbuprenorphine 1366.9 NG/mL 10 Final [facility] NG/mL Health: [address], [place] ? ? ? Legend abbreviations ? Final Sa michelle Health: [address], [place] 10/10/2021 Drug UR ? Amphetamines negative NG/mL 1,000 Final [facility] Screen, NG/mL Health: Urine [address], [place] ? ? UR ? Benzodiazapines negative NG/mL 200 Final [facility] NG/mL Health: [address], [place] ? ? UR ? Buprenorphine positive NG/mL 5 F inal [facility] NG/mL Health: [address], [place] ? ? UR ? Cocaine negative NG/mL 150 Final [facility] Metabolite NG/mL Health : [address], [place] ? ? UR ? Opiates negative NG/mL 300 Final [facility] NG/mL Health: [address], [place] ? ? UR ? Oxycodone negative NG/mL 300 Final [facility] NG/mL Health: [address], [place] ? ? UR ? Fentanyl negative NG/mL 2 Final [facility] NG/mL Health: [address], [place] ? ? UR ABNORMAL Ethyl Alcohol positive mg/dL 10 Final [facility] mg/dL Health: [address], [place] ? ? UR ? Methadone negative NG/mL 300 Final [facility] Metabolite NG/mL Health : [address], [place] ? ? UR ABNORMAL Cannabinoids positive NG/mL 50 Final [facility] (THC) NG/mL Health: [address], [place] ? ? UR ? Urine Creatinine 268.2 mg/dL >20 F inal [facility] mg/dL Health: [address], [place] ? ? UR ? Urine pH 6.20 4.5-9. Final [facility] 0 Health: [address], [place] ? ? UR ? Specific Mammoth 1.024 1.003- Final [facility] 1.035 Health: [address] [place] 10/10/2021 Drug UR ? Buprenorphine 514.1 NG/mL 10 Final [facility] Confirma NG/mL Health: tion, 12 [address], [place] ? ? UR ? Norbuprenorphine 50.7 NG/mL 10 Fi nal [facility] NG/mL Health: [address], [place] ? ? UR ? Legend abbreviations ? Final Sa michelle Health: [address], [place] ? ? UR ? Billing Only billing only ? Lynsey tomas [facility] ([id number]) Health: [address] 09/10/2021 Drug UR ? Amphetamines negative NG/mL 1,000 Final [facility] Screen, NG/mL Health: Urine [address], [place] ? ? UR ? Benzodiazapines negative NG/mL 200 Final [facility] NG/mL Health: [address], [place] ? ? UR ? Buprenorphine positive NG/mL 5 F inal [facility] NG/mL Health: [address], [place] ? ? UR ? Cocaine negative NG/mL 150 Final [facility] Metabolite NG/mL Health : [address], [place] ? ? UR ? Opiates negative NG/mL 300 Final [facility] NG/mL Health: [address], [place] ? ? UR ? Oxycodone negative NG/mL 300 Final [facility] NG/mL Health: [address], [place] ? ? UR ? Fentanyl negative NG/mL 2 Final [facility] NG/mL Health: [address], [place] ? ? UR ? Ethyl Alcohol negative mg/dL 10 F inal [facility] mg/dL Health: [address], [place] ? ? UR ? Methadone negative NG/mL 300 Final [facility] Metabolite NG/mL Health : [address], [place] ? ? UR ? Cannabinoids negative NG/mL 50 Fi nal [facility] (THC) NG/mL Health: [address], [place] ? ? UR ? Urine Creatinine 185.0 mg/dL >20 F inal [facility] mg/dL Health: [address], [place] ? ? UR ? Urine pH 5.50 4.5-9. Final [facility] 0 Health: [address], [place] ? ? UR ? Specific Mammoth 1.028 1.003- Final [facility] 1.035 Health: [address], [place] 09/10/2021 Drug UR ? Buprenorphine 371.2 NG/mL 10 Final [facility] Confirma NG/mL Health: tion, [address], [place] ? ? UR ? Norbuprenorphine 570.8 NG/mL 10 F inal [facility] NG/mL Health: [address], [place] ? ? UR ? Legend abbreviations ? Final Sa michelle Health: [address], [place] ? ? UR ? Billing Only billing only ? Lynsey tomas [facility] ([id number]) Health: [address], [place] 08/13/2021 Drug UR ? Amphetamines negative NG/mL 1,000 Final [facility] Screen, NG/mL Health: Urine [address], [place] ? ? UR ? Benzodiazapines negative NG/mL 200 Final [facility] NG/mL Health: [address], [place] ? ? UR ? Buprenorphine positive NG/mL 5 F inal [facility] NG/mL Health: [address], [place] ? ? UR ? Cocaine negative NG/mL 150 Final [facility] Metabolite NG/mL Health : [address], [place] ? ? UR ? Opiates negative NG/mL 300 Final [facility] NG/mL Health: [address], [place] ? ? UR ? Oxycodone negative NG/mL 300 Final [facility] NG/mL Health: [address], [place] ? ? UR ? Fentanyl negative NG/mL 2 Final [facility] NG/mL Health: [address], [place] ? ? UR ABNORMAL Ethyl Alcohol positive mg/dL 10 Final [facility] mg/dL Health: [address], [place] ? ? UR ? Methadone negative NG/mL 300 Final [facility] Metabolite NG/mL Health : [address], [place] ? ? UR ? Urine Creatinine 292.6 mg/dL >20 F inal [facility] mg/dL Health: [address], [place] ? ? UR ? Urine pH 5.60 4.5-9. Final [facility] 0 Health: [address], [place] ? ? UR ? Specific Mammoth 1.025 1.003- Final [facility] 1.035 Health: [address], [place] 08/13/2021 Drug UR ? Buprenorphine 295.8 NG/mL 10 Final [facility] Confirma NG/mL Health: tion, [address], [place] ? ? UR ? Norbuprenorphine 38.0 NG/mL 10 Fi nal [facility] NG/mL Health: [address], [place] ? ? UR ? Legend abbreviations ? Final Sa michelle Health: [address], [place] ? ? UR ? Billing Only billing only ? Lynsey l [facility] ([id number]) Health: [address], [place] 07/16/2021 Drug UR ? Amphetamines negative NG/mL 1,000 Final [facility] Screen, NG/mL Health: Urine [address], [place] ? ? UR ? Benzodiazapines negative NG/mL 200 Final [facility] NG/mL Health: [address], [place] ? ? UR ? Buprenorphine positive NG/mL 5 F inal [facility] NG/mL Health: [address], [place] ? ? UR ? Cocaine negative NG/mL 150 Final [facility] Metabolite NG/mL Health : [address], [place] ? ? UR ? Opiates negative NG/mL 300 Final [facility] NG/mL Health: [address], [place] ? ? UR ? Oxycodone negative NG/mL 300 Final [facility] NG/mL Health: [address], [place] ? ? UR ? Fentanyl negative NG/mL 2 Final [facility] NG/mL Health: [address], [place] ? ? UR ABNORMAL Ethyl Alcohol positive mg/dL 10 Final [facility] mg/dL Health: [address], [place] ? ? UR ? Methadone negative NG/mL 300 Final [facility] Metabolite NG/mL Health : [address], [place] ? ? UR ? Urine Creatinine 265.0 mg/dL >20 F inal [facility] mg/dL Health: [address], [place] ? ? UR ? Urine pH 6.20 4.5-9. Final [facility] 0 Health: [address], [place] ? ? UR ? Specific Mammoth 1.024 1.003- Final [facility] 1.035 Health: [address], [place] 07/16/2021 Drug UR ? Buprenorphine 494.4 NG/mL 10 Final [facility] Confirma NG/mL Health: tion, [address], [place] ? ? UR ? Norbuprenorphine 89.1 NG/mL 10 Fi nal [facility] NG/mL Health: [address], [place] ? ? UR ? Legend abbreviations ? Final Sa michelle Health: [address], [place] ? ? UR ? Billing Only billing only ? Lynsey tomas [facility] ([id number]) Health: [address], [place] Past Encounters Encounter Date Diagnosis Provider 04/29/2022 Opioid Dependence Ewelina joya [facility]: [address] [place] [phone], Ph. 03/31/2022 Opioid Dependence Ewelina joya [facility]: [address] [place] [address], Ph. 03/03/2022 Opioid Dependence Ewelina joya [facility]: [address] [place] [address], Ph. [phone] 3902/03/2022 Opioid Dependence; Medication Dose Justen Long: [address] [facility] [place] [place] [phone], Ph. [phone] 01/02/2022 Opioid Dependence Ángel Spring, [facility]: [address] [place] [phone], Ph. 12/04/2021 Opioid Dependence Angeli Gong s: [address] [place] [address], Ph. [phone] 11/05/2021 Opioid Dependence Ángel Spring [facility]: [address] [place] [phone], Ph. 10/10/2021 Opioid Dependence Savannah kearney MD: [address] [place] [phone], Ph. [phone] 09/10/2021 Opioid Dependence Ángel Spring [facility]: [address] [place] [phone], Ph. 08/13/2021 Opioid Dependence Ewelina joya [facility]: [address] [place] [place] [phone], Ph. [phone] 3907/16/2021 Ewelina joya [facility]: [address] [place] [phone], Ph. [phone] 06/18/2021 Ángel Spring [facility]: [address] [place] [phone], Ph. 05/15/2021 Savannah kearney MD: [address] [place] [phone], Ph. [phone] 3904/17/2021 Ninfa Armenta [facility]: [address] [place] [phone], Ph. [phone] 03/21/2021 Ángel Spring [facility]: [address] [place], [place] [phone], Ph. 02/21/2021 MARIANO James: [address] [place] [phone], Ph. Social History None recorded. Vaccine List Notes: 01/24/2021-Lupillo 09/22-irene 08/24/19 Irene 07/27/19 Irene 06/29-irene 06/01/19 Irene 05/18/19 Irene 05/04 Irene 04/20 Irene 04/06-irene 03/23/19 Irene 02/22/19 Irene February 04, 2019 Irene January 10, 2019 Irene December Irene 2018 Irene 12/01/18 Irene 11/24/18 he has an appt today with irene shericegeorge escobedo @ 4:30pm 11/17/2018Jul AT [facility] 11/10/2018Jul AT [facility] 10/26/2018Jul AT [facility] Has intake at [facility] 10/07 Plan of Care Patient Instructions As part of your individualized treatmen t plan and program requirement, you will need to bring your correct prescription bottle and all used and unused medication and counseling verification to each appointment; > Agree to participate in counseling and bring counseling verification to each appointment; > Agree to present for random visits; > Agree to not falsify your urine specim ens. As part of your individualized treatmen t plan and program requirement, you will need to bring your correct prescription bottle and all used and unused medication and counseling verification to each appointment; > Agree to participate in counseling and bring counseling verification to each appointment; > Agree to present for random visits; > Agree to not falsify your urine specim ens. Reminders Provider Appointments None recorded. ? ? Lab None recorded. ? ? Referral None recorded. ? ? Procedures None recorded. ? ? Surgeries None recorded. ? ? Imaging None recorded. ? ? Vitals 09/23/2019 Blood Pressure 136/84 mm[Hg] 08/24/2019 Blood Pressure 110/80 mm[Hg] 07/27/2019 Blood Pressure 120/80 mm[Hg] 06/29/2019 Blood Pressure 124/80 mm[Hg] 06/01/2019 Blood Pressure 120/70 mm[Hg] 05/18/2019 Blood Pressure 120/80 mm[Hg] 05/04/2019 Blood Pressure 130/70 mm[Hg] 04/20/2019 Blood Pressure 110/80 mm[Hg] 04/06/2019 Blood Pressure 140/80 mm[Hg] 03/23/2019 Blood Pressure 140/90 mm[Hg] 03/09/2019 Blood Pressure 120/80 mm[Hg] 02/22/2019 Blood Pressure 110/70 mm[Hg] 02/08/2019 Blood Pressure 120/80 mm[Hg] 01/24/2019 Blood Pressure 130/80 mm[Hg] 01/10/2019 Blood Pressure 100/80 mm[Hg] 12/29/2018 Blood Pressure 120/70 mm[Hg] 2018 Blood Pressure 130/90 mm[Hg] 12/08/2018 Blood Pressure 100/64 mm[Hg] 12/01/2018 Blood Pressure 100/62 mm[Hg] 11/24/2018 Blood Pressure 104/60 mm[Hg] 11/17/2018 Blood Pressure 102/50 mm[Hg] 11/10/2018 Blood Pressure 104/80 mm[Hg] 10/27/2018 Blood Pressure 90/60 mm[Hg] 10/20/2018 Blood Pressure 114/64 mm[Hg] 10/13/2018 Blood Pressure 100/70 mm[Hg] 10/07/2018 Blood Pressure 110/60 mm[Hg] 10/06/2018 Blood Pressure 112/62 mm[Hg]
[2022-07-31 20:15] LABS: MANUAL DIFF FLAG NO
--- NOTE | 2022-07-31 20:18 | PC.NURSE ---
iv line attempted x 1 by this RN @2009. iv line blew but was able to obtain blood work. 2nd RN attempting iv line now. patient placed on 3L O2 for comfort, patient maintaining normal O2 sats but c/o difficulty breathing and increased work of breathing. states he feels much more comfortable with the nasal cannula
[2022-07-31 20:23] LABS: Basophils Absolute Auto 0.1 X10*3/uL (0.0-0.2); Basophils Percent Auto 0.3 % (0-2); Eosinophils Absolute Auto 0.1 X10*3/uL (0.0-0.4); Eosinophils Percent Auto 0.2 % (0-4); Hematocrit 38.7 % (42.0-52.0); Hemoglobin 14.3 g/dl (14.0-18.0); Imm Gran Abs Auto 0.18 X10*3/uL (0.00-0.03); Imm Gran Pct Auto 0.6 % (0.0-0.4); Lymphocytes Absolute Auto 0.6 X10*3/uL (1.2-4.9); Lymphocytes Percent Auto 1.9 % (20-40); Mean Corpuscular Hemoglobin 40.2 pg (27.0-33.0); Mean Corpuscular Volume 108.7 fL (80.0-98.0); Monocytes Percent Auto 6.6 % (2-11); Neutrophils Absolute Auto 27.1 x10*3/uL (2.0-8.3); Neutrophils Percent Auto 90.4 % (45-73); Platelet Count 183 X10*3/uL (160-400); Red Blood Count 3.56 X10*6/uL (4.60-5.80); Red Cell Distribution Width 12.7 % (11.0-16.0); SCAN SMEAR FLAG 1; White Blood Count 29.9 X10*3/uL (4.8-10.8)
[2022-07-31 20:34] LABS: Alanine Aminotransferase 41 U/L (0-40); Albumin Level 3.9 g/dL (3.5-5.0); Alkaline Phosphatase 205 U/L (39-117); Anion Gap 22 (12-20); Aspartate Amino Transferase 95 U/L (5-37); Bilirubin Total 2.2 mg/dL (0.0-1.0); Blood Urea Nitrogen 6 mg/dL (9-16); Calcium 7.7 mg/dL (8.4-10.2); Carbon Dioxide 22 mmol/L (22-29); Chloride 94 mmol/L (96-108); Estimated Glomerular Filt Rate > 60; Glucose Random 147 mg/dL (60-115); Potassium 2.8 mmol/L (3.3-5.1); Sodium 135 mmol/L (135-145); Total Protein 7.6 g/dL (6.5-8.0)
[2022-07-31] MEDS: 0.9 % Sodium Chloride 1,000 ML 999 ML IV ×3 (20:52→23:22)
[2022-07-31] MEDS: Ketorolac Tromethamine 15 MG/ML VIAL IVPUSH (20:52)
[2022-07-31 20:53] LABS: Influenza A PCR NEGATIVE (Negative); Influenza B PCR NEGATIVE (Negative); Resp Syncy Virus RNA Qual PCR NEGATIVE (Negative); SARS COV2 PCR INHOUSE NEGATIVE (Negative)
[2022-07-31 21:22] LABS: IDNOW Serial# 6674DD1D; Strep A Nucleic Acid Negative (Negative)
[2022-07-31 21:39] VITALS: PULSE 87; RESP 20; TEMP 37.7
[2022-07-31] MEDS: Potassium Chloride/H20 10 MEQ/100 ML PIGGYBACK 100 MEQ IV (22:21)
[2022-07-31] MEDS: Potassium Bicarbonate/Cit AC 25 MEQ TABLET.EFF PO (22:22)
[2022-07-31] MEDS: cefTRIAXone sodium 1 GM in 0.9 % Sodium Chloride 50 ML IV (22:43)
[2022-07-31 22:54] LABS: Lactic Acid 1.4 mmol/L (0.5-2.0)
[2022-07-31] MEDS: Azithromycin 500 MG in 0.9 % Sodium Chloride 250 ML 125 MG IV (23:22)
--- NOTE | 2022-07-31 23:26 | PC.NURSE ---
second iv line placed - #18g US guided L upper arm placed by MD Josue @2200 - blood cultures and lactic obtained - patient febrile, tachycardic w/ elevated wbc - flu/covid/rsv negative. admit for pneumonia needed abx and iv fluids
[2022-07-31 23:50] VITALS: BP 114/65; PULSE 91; RESP 18; TEMP 37.4; O2SAT 98
--- NOTE | 2022-07-31 23:52 | P.HPHOSP_ITS ---
History of Present Illness Date of Service: 08/01/22 Chief Complaint: Feeling ill 31-year-old male with no significant past medical history who presents to the hospital with complaints of feeling generally unwell. Patient reports that for the past 3 days he has been having significant nausea vomiting diarrhea as well as upper respiratory symptoms including cough, shortness of breath to the point that he could not ambulate without becoming significantly short of breath and turning pale, reports subjective fevers, chills, and inability to tolerate any p.o. intake. On arrival to the ED patient hemodynamically stable with a fever of 101, heart rate of 139 Labs are significant for WBC count of 29.9, left shift, potassium of 2.8, calcium 7.7, total bili of 2.2, AST of 95, ALT of 41, alk-phos of 2 5, influenza a RSV influenza B as well as COVID-19 negative. Strep pyogenes negative. Chest x-ray shows patchy consolidation infiltrate in the left mid lung Review of Systems Review of Systems: Yes all other systems are reviewed and are negative [facility] Medical History (Updated 08/01/22 @ 06:49 by Marlon Agarwal MD) No pertinent past medical history Surgical History (Updated 08/01/22 @ 06:46 by Marlon Agarwal MD) No pertinent past surgical history Social History (Updated 08/01/22 @ 06:47 by Marlon Agarwal MD) Alcohol intake: current Patient Tobacco Use Status: Current everyday Tobacco user Use of substances other than those prescribed or required for medical reasons: Yes Substance Use Type: Marijuana Last Used Substance Other:: used IV drugs more than 2 years ago Advance Directives: No Advance Directives Information Provided: No Meds Allergies Allergy/AdvReac Type Severity Reaction Status Date / Time No Known Allergies Allergy Verified 07/31/22 19:28 [No Known Allergies*] Active Medications: Current Medications Azithromycin 500 mg/ Sodium (Chloride) 250 mls @ 125 mls/hr IV ONCE ONE Stop: 08/01/22 00:01 Last Admin: 07/31/22 23:22 Dose: 125 mls/hr Physical Exam Vital Signs and Narrative: Vital Signs: Last Vital Signs Temp 99.3 F 07/31/22 23:50 Pulse 91 07/31/22 23:50 Resp 18 07/31/22 23:50 BP 114/65 07/31/22 23:50 Pulse Ox 98 07/31/22 23:50 O2 Del Method 07/31/22 23:50 O2 Flow Rate 4 07/31/22 23:50 BMI result Body Mass Index 25.7 Const: Other: ill-appearing General: cooperative and no acute distress Orientation/consciousness: patient oriented x3 Eyes: General: appearance normal, both eyes and all related structures Resp: Other: crackles in the left lung Effort & Inspection: normal respiratory effort Cardio: Rate: regular rate Rhythm: regular rhythm GI: Palpation (GI): Soft to palpation Auscultation: normal bowel sounds Skin: General skin exam: no rashes or lesions noted Neuro: General: patient oriented x3 Cognition (Neuro): normal cognition Extrem: General: Yes normal to inspection and Yes no pedal edema Results Labs 07/31/22 20:10 07/31/22 20:10 Labs: Laboratory Results - last 24 hr 07/31/22 07/31/22 07/31/22 19:55 20:10 20:10 MCV 108.7 H MCH 40.2 H MCHC 37.0 H RDW 12.7 Plt Count 183 MPV 11.0 Immature Gran % (Auto) 0.6 H Neut % (Auto) 90.4 H Lymph % (Auto) 1.9 L [place] % (Auto) 6.6 Eos % (Auto) 0.2 Baso % (Auto) 0.3 Lymph # (Auto) 0.6 L [place] # (Auto) 2.0 H Eos # (Auto) 0.1 Baso # (Auto) 0.1 Abs Immat Gran (auto) 0.18 H Absolute Neuts (auto) 27.1 H Absolute Nucleated RBC 0.000 Nucleated RBC % (auto) 0.0 Anion Gap 22 H Estim Creat Clear Calc 134.0 Estimated GFR > 60 Random Glucose 147 H Lactic Acid Calcium 7.7 L Total Bilirubin 2.2 H Direct Bilirubin 1.0 H AST 95 H ALT 41 H Alkaline Phosphatase 205 H Total Protein 7.6 Albumin 3.9 Influenza Type A (PCR) NEGATIVE Influenza Type B (PCR) NEGATIVE RSV RNA Qual (PCR) NEGATIVE SARS-CoV-2 RNA (RT-PCR) NEGATIVE S. pyogenes GrpA ANTONI[place]TA 07/31/22 07/31/22 20:52 22:19 MCV MCH MCHC RDW Plt Count MPV Immature Gran % (Auto) Neut % (Auto) Lymph % (Auto) [place] % (Auto) Eos % (Auto) Baso % (Auto) Lymph # (Auto) [place] # (Auto) Eos # (Auto) Baso # (Auto) Abs Immat Gran (auto) Absolute Neuts (auto) Absolute Nucleated RBC Nucleated RBC % (auto) Anion Gap Estim Creat Clear Calc Estimated GFR Random Glucose Lactic Acid 1.4 Calcium Total Bilirubin Direct Bilirubin AST ALT Alkaline Phosphatase Total Protein Albumin Influenza Type A (PCR) Influenza Type B (PCR) RSV RNA Qual (PCR) SARS-CoV-2 RNA (RT-PCR) S. pyogenes GrpA [place] Negative Imaging Radiologist's Impressions: Impressions Chest X-Ray 07/31/22 21:09 IMPRESSION: Patchy consolidation/infiltrate left midlung. Assessment and Plan (1) Sepsis: Qualifiers: Sepsis type: sepsis due to unspecified organism Sepsis acute organ dysfunction status: without acute organ dysfunction Qualified Code(s): A41.9 - Sepsis, unspecified organism Status: Acute (2) Community acquired pneumonia: Qualifiers: Laterality: left Lung location: unspecified part of lung Qualified Code(s): J18.9 - Pneumonia, unspecified organism Status: Acute (3) Acute hypokalemia: Status: Acute (4) Gastroenteritis: Status: Acute Plan this is a 31-year-old male presents to the hospital with complaints of feeling ill found to have pneumonia # acute sepsis - has tachycardia, febrile, leukocytosis - secondary to pneumonia - will treat with IV antibiotics - follow cultures # acute community-acquired pneumonia - viral serology negative - patient with sepsis including febrile, tachycardia, leukocytosis - will treat with IV antibiotics - follow cultures # hypokalemia - repleted - follow BMP # nausea vomiting - likely secondary to acute gastroenteritis in the setting of bacterial/viral infection - IV fluids, supportive measure, antiemetics DVT prophylaxis: Early ambulation Time Spent With Patient Time: Total time managing care of this patient today ____ minutes. Quality Stroke Does the patient have a stroke diagnosis?: No VTE Prior VTE?: No VTE Risk Level:: Medical - low VTE Device Contraindication: Treatment Not Indicated VTE Drug Contraindication: Treatment Not Indicated
--- NOTE | 2022-08-01 00:31 | PC.NURSE ---
report given to Rashawn PHOENIX . patient to be transported to overflow bed 11
[2022-08-01 01:10] VITALS: TEMP 37.3
--- NOTE | 2022-08-01 01:13 | PC.NURSE ---
Pt ambulated to rest room. Pt has steady gait. Pt reports that they feel febrile, pt temp 99.2F will continue to monitor.
[2022-08-01] MEDS: ondansetron HCL 4 MG/2 ML VIAL IVPUSH ×2 (01:44→11:12)
--- NOTE | 2022-08-01 03:31 | PC.NURSE ---
Pt sleeping at this time respirations regular.
[2022-08-01] MEDS: Acetaminophen 325 MG TABLET 650 MG PO ×4 (04:11→23:39)
--- NOTE | 2022-08-01 05:13 | PC.NURSE ---
Pt resting quietly no needs expressed.
[2022-08-01 06:30] LABS: MANUAL DIFF FLAG NO
[2022-08-01 06:34] LABS: Basophils Percent Auto 0.2 % (0-2); Eosinophils Percent Auto 0.2 % (0-4); Hematocrit 33.5 % (42.0-52.0); Hemoglobin 12.3 g/dl (14.0-18.0); Imm Gran Abs Auto 0.27 X10*3/uL (0.00-0.03); Imm Gran Pct Auto 1.4 % (0.0-0.4); Lymphocytes Absolute Auto 0.7 X10*3/uL (1.2-4.9); Lymphocytes Percent Auto 3.6 % (20-40); Mean Corpuscular HGB Conc 36.7 g/dl (31.0-36.0); Mean Corpuscular Hemoglobin 39.2 pg (27.0-33.0); Mean Corpuscular Volume 106.7 fL (80.0-98.0); Mean Platelet Volume 9.7 fL (9.4-12.4); Monocytes Absolute Auto 1.5 X10*3/uL (0.1-1.2); Monocytes Percent Auto 7.3 % (2-11); Neutrophils Absolute Auto 17.3 x10*3/uL (2.0-8.3); Neutrophils Percent Auto 87.3 % (45-73); Platelet Count 130 X10*3/uL (160-400); Red Blood Count 3.14 X10*6/uL (4.60-5.80); Red Cell Distribution Width 12.8 % (11.0-16.0); White Blood Count 19.8 X10*3/uL (4.8-10.8)
[2022-08-01 06:44] VITALS: BP 124/75; PULSE 78; RESP 18; TEMP 36.9; O2SAT 97
[2022-08-01 06:52] LABS: Anion Gap 16 (12-20); Carbon Dioxide 21 mmol/L (22-29); Chloride 103 mmol/L (96-108); Estimated Glomerular Filt Rate > 60; Potassium 2.6 mmol/L (3.3-5.1); Sodium 137 mmol/L (135-145)
[2022-08-01 09:09] LABS: Alanine Aminotransferase 34 U/L (0-40); Albumin Level 3.2 g/dL (3.5-5.0); Alkaline Phosphatase 155 U/L (39-117); Aspartate Amino Transferase 68 U/L (5-37); Bilirubin Direct 0.7 mg/dL (0.0-0.5); Bilirubin Total 1.3 mg/dL (0.0-1.0); Glucose Random 112 mg/dL (60-115); Phosphorus 2.2 mg/dL (2.7-4.5); Total Protein 6.3 g/dL (6.5-8.0)
--- NOTE | 2022-08-01 09:14 | PHA.MEDREC ---
Pharmacy Consult ? Medication Reconciliation Pharmacy has completed the medication reconciliation. Patient reports no medications except OTC Tylenol for pain. Julissa Garcia, MichellD
[2022-08-01 09:21] LABS: Vitamin D 25-OH Total 5.1 ng/mL (>30)
[2022-08-01 09:27] LABS: Magnesium 0.6 mg/dL (1.6-2.6)
[2022-08-01 09:28] LABS: Blood Urea Nitrogen 8 mg/dL (9-16)
[2022-08-01 09:29] LABS: Calcium 6.8 mg/dL (8.4-10.2); Creatinine Clr Calc Pharmacy 157.9
[2022-08-01] MEDS: 0.9 % Sodium Chloride Flush 3 ML SYRINGE IVFLUSH (09:29)
[2022-08-01] MEDS: Potassium Chloride Packet 20 MEQ PACKET 40 MEQ PO ×4 (09:29→22:03)
[2022-08-01] MEDS: Magnesium Oxide 400 MG TABLET 800 MG PO (09:31)
[2022-08-01] MEDS: Potassium Chloride/H20 10 MEQ/100 ML PIGGYBACK 100 MEQ IV ×2 (09:52→13:26)
[2022-08-01] MEDS: Nicotine 21 MG PATCH.TD24 TRANSDERMA (09:59)
[2022-08-01 10:32] LABS: Amphetamine Screen Urine Not Detected (Not Detect); Barbiturates, Urine Not Detected (Not Detect); Benzodiazepines Screen Urine Not Detected (Not Detect); Cannabinoid Screen Urine POSITIVE (Not Detect); Cocaine Screen Urine Not Detected (Not Detect); Fentanyl, urine Not Detected (Not Detect); Opiate Screen Urine Not Detected (Not Detect); Phencyclidine Screen Urine Not Detected (Not Detect)
[2022-08-01] MEDS: Calcium Gluconate/NaCl,Iso-Osm 2 GM/100 ML PLAST..BAG IV (11:18)
[2022-08-01] MEDS: Magnesium Sulfate/H2O 2 GM/50 ML PIGGYBACK IV (11:30)
--- NOTE | 2022-08-01 12:34 | PC.NURSE ---
patient a very difficult stick and one of his IVs was not working and had to be pulled. L AC is fine to use
--- NOTE | 2022-08-01 13:10 | P.PNIM_ITS ---
Subjective Subjective Date of Service: 08/01/22 Interval History: Sepsis secondary to pneumonia, hypomagnesemia Review of Systems Still having lot of aggressive cough, feels generalized weak, overnight also had fever of 101 Decreased p.o. intake. Denies any drug use from few years. Otherwise denies any chest pain or nausea or vomiting or any urinary complaints Physical Exam Vital Signs: Vital Signs: Last Vital Signs Temp 98.4 F 08/01/22 06:44 Pulse 78 08/01/22 06:44 Resp 18 08/01/22 06:44 BP 124/75 08/01/22 06:44 Pulse Ox 97 08/01/22 06:44 O2 Del Method 08/01/22 06:44 O2 Flow Rate 4 07/31/22 23:50 BMI result Body Mass Index 25.7 Appearance: Alert.? Oriented X3.generalised weak,? aggressive cough cvs: rrr, [id number] . res: air entry diminshed left >right , few rhonchii abd: no rebound or guarding ,nt, bs present. ext pulses present , no cyanosis. neuro: axo3 , nonfocal. Objective Data Active Medications Acetaminophen (Acetaminophen 325 Mg Tablet) 650 mg PO Q6H PRN PRN Reason: Pain, Mild (Pain Scale 1-3) Last Admin: 08/01/22 10:56 Dose: 650 mg Documented By: ROSIE Azithromycin (Azithromycin 500 Mg Tablet) 500 mg PO Q24H [facility] Ceftriaxone Sodium 1 gm/ (Sodium Chloride) 50 mls @ 100 mls/hr IV BEDTIME [facility] Magnesium Oxide (Magnesium Oxide 400 Mg Tablet) 800 mg PO DAILY [facility] Last Admin: 08/01/22 09:31 Dose: 800 mg Documented By: ROSIE Nicotine (Nicotine 21 Mg Patch.Td24) 21 mg TRANSDERMA DAILY [facility] Last Admin: 08/01/22 09:59 Dose: 21 mg Documented By: ROSIE Ondansetron HCl (Ondansetron Hcl 4 Mg/2 Ml Vial) 4 mg IVPUSH Q8H PRN PRN Reason: Nausea and Vomiting Last Admin: 08/01/22 11:12 Dose: 4 mg Documented By: ROSIE Potassium Chloride (Potassium Chloride Packet 20 Meq Packet) 40 meq PO BID [facility] Last Admin: 08/01/22 09:29 Dose: 40 meq Documented By: ROSIE Sodium Chloride (0.9 % Sodium Chloride Flush 3 Ml Syringe) 3 ml IVFLUSH QSHIFT [facility] Last Admin: 08/01/22 09:29 Dose: 3 ml Documented By: ROSIE Labs 08/01/22 06:23 08/01/22 06:23 Labs: Laboratory Results - last 24 hr 07/31/22 07/31/22 07/31/22 19:55 20:10 20:10 MCV 108.7 H MCH 40.2 H MCHC 37.0 H RDW 12.7 Plt Count 183 MPV 11.0 Immature Gran % (Auto) 0.6 H Neut % (Auto) 90.4 H Lymph % (Auto) 1.9 L [place] % (Auto) 6.6 Eos % (Auto) 0.2 Baso % (Auto) 0.3 Lymph # (Auto) 0.6 L [place] # (Auto) 2.0 H Eos # (Auto) 0.1 Baso # (Auto) 0.1 Abs Immat Gran (auto) 0.18 H Absolute Neuts (auto) 27.1 H Absolute Nucleated RBC 0.000 Nucleated RBC % (auto) 0.0 Anion Gap 22 H Estim Creat Clear Calc 134.0 Estimated GFR > 60 Random Glucose 147 H Lactic Acid Calcium 7.7 L Phosphorus Magnesium Total Bilirubin 2.2 H Direct Bilirubin 1.0 H AST 95 H ALT 41 H Alkaline Phosphatase 205 H Total Protein 7.6 Albumin 3.9 25-OH Vitamin D Total Procalcitonin Urine Opiates Screen Urine Fentanyl Screen Ur Barbiturates Screen Ur Phencyclidine Scrn Ur Amphetamines Screen U Benzodiazepines Scrn Urine Cocaine Screen U Marijuana (THC) Screen Influenza Type A (PCR) NEGATIVE Influenza Type B (PCR) NEGATIVE RSV RNA Qual (PCR) NEGATIVE SARS-CoV-2 RNA (RT-PCR) NEGATIVE S. pyogenes GrpA [place] 07/31/22 07/31/22 07/31/22 20:10 20:52 22:19 MCV MCH MCHC RDW Plt Count MPV Immature Gran % (Auto) Neut % (Auto) Lymph % (Auto) [place] % (Auto) Eos % (Auto) Baso % (Auto) Lymph # (Auto) [place] # (Auto) Eos # (Auto) Baso # (Auto) Abs Immat Gran (auto) Absolute Neuts (auto) Absolute Nucleated RBC Nucleated RBC % (auto) Anion Gap Estim Creat Clear Calc Estimated GFR Random Glucose Lactic Acid 1.4 Calcium Phosphorus Magnesium Total Bilirubin Direct Bilirubin AST ALT Alkaline Phosphatase Total Protein Albumin 25-OH Vitamin D Total Procalcitonin 43.30 Urine Opiates Screen Urine Fentanyl Screen Ur Barbiturates Screen Ur Phencyclidine Scrn Ur Amphetamines Screen U Benzodiazepines Scrn Urine Cocaine Screen U Marijuana (THC) Screen Influenza Type A (PCR) Influenza Type B (PCR) RSV RNA Qual (PCR) SARS-CoV-2 RNA (RT-PCR) S. pyogenes GrpA [place] Negative 08/01/22 08/01/22 08/01/22 06:23 06:23 10:14 MCV 106.7 H MCH 39.2 H MCHC 36.7 H RDW 12.8 Plt Count 130 L D MPV 9.7 Immature Gran % (Auto) 1.4 H Neut % (Auto) 87.3 H Lymph % (Auto) 3.6 L [place] % (Auto) 7.3 Eos % (Auto) 0.2 Baso % (Auto) 0.2 Lymph # (Auto) 0.7 L [place] # (Auto) 1.5 H Eos # (Auto) 0.0 Baso # (Auto) 0.0 Abs Immat Gran (auto) 0.27 H Absolute Neuts (auto) 17.3 H Absolute Nucleated RBC 0.000 Nucleated RBC % (auto) 0.0 Anion Gap 16 Estim Creat Clear Calc 157.9 Estimated GFR > 60 Random Glucose 112 Lactic Acid Calcium 6.8 L D Phosphorus 2.2 L Magnesium 0.6 L* Total Bilirubin 1.3 H Direct Bilirubin 0.7 H AST 68 H ALT 34 Alkaline Phosphatase 155 H Total Protein 6.3 L Albumin 3.2 L 25-OH Vitamin D Total 5.1 Procalcitonin Urine Opiates Screen Not Detected Urine Fentanyl Screen Not Detected Ur Barbiturates Screen Not Detected Ur Phencyclidine Scrn Not Detected Ur Amphetamines Screen Not Detected U Benzodiazepines Scrn Not Detected Urine Cocaine Screen Not Detected U Marijuana (THC) Screen POSITIVE H Influenza Type A (PCR) Influenza Type B (PCR) RSV RNA Qual (PCR) SARS-CoV-2 RNA (RT-PCR) S. pyogenes GrpA [place] Assessment and Plan (1) Sepsis: Status: Acute (2) Community acquired pneumonia: Status: Acute (3) Acute hypokalemia: Status: Acute (4) Hypomagnesemia: Status: Acute (5) Hypocalcemia: Status: Acute (6) Pneumonia: Status: Acute (7) Gastroenteritis: Status: Acute Plan 31-year-old male presents to the hospital with complaints of feeling ill found to have pneumonia #? acute sepsis sec community-acquired pneumonia -? has tachycardia, leukocytosis imrpoving, febrilelast night added sputum culture, strep and Legionella antigen, blood culture pending Continue IV antibiotics-ceftriaxone/azithromycin day 2, cough medication, not hypoxic. #? hypokalemia/hypomagnesemia, hypocalcemia:? Due to decreased p.o. intake in the setting of acute sickness. -? repletediv and po potassium, magnesium, calcium -? follow BMP, added PTH, phosphorous, vitamin-D levels. #? nausea vomiting -? likely secondary to acute gastroenteritis in the setting of bacterial/viral infection -improving, encouraged to try diet,? IV fluids, supportive measure, antiemetics ?DVT prophylaxis:? Early ambulation On going hospital stay: Sepsis secondary to pneumonia need IV antibiotics in addition has multiple electrolytic abnormalities need renal function and electrolytic monitoring and workup. Time Spent With Patient Time: Total time managing care of this patient today ____ minutes. Quality Stroke Does the patient have a stroke diagnosis?: No VTE Prior VTE?: No VTE Risk Level:: Medical - low VTE Device Contraindication: Treatment Not Indicated VTE Drug Contraindication: Treatment Not Indicated
--- NOTE | 2022-08-01 13:49 | PC.NURSE ---
Left IV infiltrated and unable to use. will reach out to main ED and see if someone can come and attempt another IV
[2022-08-01] MEDS: guaiFEN/Codeine SF 200/20/10ML 10 ML LIQUID PO (14:38)
[2022-08-01] MEDS: Omeprazole 20 MG CAPSULE.DR PO (14:38)
[2022-08-01 15:15] VITALS: BP 119/69; PULSE 100; RESP 20; TEMP 36.4; O2SAT 98
[2022-08-01] MEDS: Sodium,Potassium Phosphates POWD.PACK 1 PACKET PO ×2 (18:21→22:03)
[2022-08-01 18:28] LABS: CDiff Gene PCR NEGATIVE (Negative)
[2022-08-01 19:11] VITALS: BP 120/71; PULSE 98; RESP 20; TEMP 36.1; O2SAT 97
[2022-08-01 20:34] LABS: Anion Gap 14 (12-20); Blood Urea Nitrogen 7 mg/dL (9-16); Calcium 7.5 mg/dL (8.4-10.2); Carbon Dioxide 24 mmol/L (22-29); Chloride 100 mmol/L (96-108); Creatinine Clr Calc Pharmacy 167.1; Estimated Glomerular Filt Rate > 60; Glucose Random 72 mg/dL (60-115); Magnesium 0.9 mg/dL (1.6-2.6); Potassium 2.4 mmol/L (3.3-5.1); Sodium 136 mmol/L (135-145)
[2022-08-01 23:34] VITALS: BP 123/64; PULSE 107; RESP 18; TEMP 37.8; O2SAT 98
[2022-08-02] MEDS: Nicotine 21 MG PATCH.TD24 TRANSDERMA ×2 (00:35→08:53)
[2022-08-02 03:59] VITALS: BP 125/64; PULSE 88; RESP 18; TEMP 37.8; O2SAT 95
[2022-08-02] MEDS: Omeprazole 20 MG CAPSULE.DR PO (05:11)
[2022-08-02] MEDS: guaiFEN/Codeine SF 200/20/10ML 10 ML LIQUID PO ×5 (05:11→21:27)
[2022-08-02] MEDS: traMADoL HCL 50 MG TABLET PO ×3 (06:07→21:32)
[2022-08-02 06:52] LABS: Hematocrit 32.1 % (42.0-52.0); Hemoglobin 11.9 g/dl (14.0-18.0); Mean Corpuscular HGB Conc 37.1 g/dl (31.0-36.0); Mean Corpuscular Hemoglobin 39.7 pg (27.0-33.0); Mean Platelet Volume 10.4 fL (9.4-12.4); Platelet Count 153 X10*3/uL (160-400); Red Cell Distribution Width 12.7 % (11.0-16.0); White Blood Count 13.6 X10*3/uL (4.8-10.8)
[2022-08-02 07:48] VITALS: BP 130/83; PULSE 86; RESP 18; TEMP 37.7; O2SAT 93
[2022-08-02 07:58] LABS: Anion Gap 16 (12-20); Blood Urea Nitrogen 6 mg/dL (9-16); Calcium 7.3 mg/dL (8.4-10.2); Carbon Dioxide 25 mmol/L (22-29); Chloride 98 mmol/L (96-108); Creatinine Clr Calc Pharmacy 174.7; Estimated Glomerular Filt Rate > 60; Glucose Random 100 mg/dL (60-115); Potassium 2.5 mmol/L (3.3-5.1); Sodium 136 mmol/L (135-145)
[2022-08-02] MEDS: Potassium Chloride Packet 20 MEQ PACKET 40 MEQ PO ×3 (08:51→21:26)
[2022-08-02] MEDS: Magnesium Oxide 400 MG TABLET 800 MG PO ×3 (08:52→17:27)
[2022-08-02] MEDS: Sodium,Potassium Phosphates POWD.PACK 2 PACKET PO ×4 (08:53→21:26)
[2022-08-02] MEDS: Loperamide HCl 2 MG CAPSULE PO (09:15)
[2022-08-02 11:18] LABS: Campylobacter Not Detected (Not Detect.); E. coli EAEC Not Detected (Not Detect.); E. coli EPEC Not Detected (Not Detect.); E. coli ETEC Not Detected (Not Detect.); E. coli STEC Not Detected (Not Detect.); Plesiomonas shigelloides Not Detected (Not Detect.); Salmonella Not Detected (Not Detect.); Vibrio Not Detected (Not Detect.); Vibrio Cholerae Not Detected (Not Detect.); Yersinia enterocolitica Not Detected (Not Detect.)
[2022-08-02 11:19] LABS: Adenovirus F 40/41 Not Detected (Not Detect.); Astrovirus Not Detected (Not Detect.); Cryptosporidium Not Detected (Not Detect.); Cyclospora cayetanensis Not Detected (Not Detect.); Entamoeba histolytica Not Detected (Not Detect.); Giardia lamblia Not Detected (Not Detect.); Norovirus GI/GII Not Detected (Not Detect.); Rotavirus A Not Detected (Not Detect.); Sapovirus Not Detected (Not Detect.); Shigella sp./EIEC Not Detected (Not Detect.)
[2022-08-02 11:53] LABS: Anion Gap 15 (12-20); Blood Urea Nitrogen 5 mg/dL (9-16); Calcium 7.5 mg/dL (8.4-10.2); Carbon Dioxide 25 mmol/L (22-29); Chloride 98 mmol/L (96-108); Creatinine Clr Calc Pharmacy 153.7; Estimated Glomerular Filt Rate > 60; Glucose Random 117 mg/dL (60-115); Potassium 2.9 mmol/L (3.3-5.1); Sodium 135 mmol/L (135-145)
[2022-08-02 12:00] VITALS: PULSE 88; RESP 18; TEMP 37.2
[2022-08-02] MEDS: Magnesium Sulfate/H2O 2 GM/50 ML PIGGYBACK IV (13:18)
[2022-08-02 14:32] LABS: Anion Gap 16 (12-20); Blood Urea Nitrogen 5 mg/dL (9-16); Calcium 7.2 mg/dL (8.4-10.2); Carbon Dioxide 21 mmol/L (22-29); Chloride 99 mmol/L (96-108); Creatinine Clr Calc Pharmacy 174.7; Estimated Glomerular Filt Rate > 60; Glucose Random 122 mg/dL (60-115); Potassium 3.2 mmol/L (3.3-5.1); Sodium 133 mmol/L (135-145)
--- NOTE | 2022-08-02 15:08 | P.PNIM_ITS ---
Subjective Subjective Date of Service: 08/02/22 Interval History: Sepsis, pneumonia, multiple electrolytic abnormalities. Review of Systems P.o. intake is slightly better but still eating on little. No fever or chills cough is improving Diarrhea is also improved significantly as per the patient. Physical Exam Vital Signs: Vital Signs: Last Vital Signs Temp 99.0 F 08/02/22 12:00 Pulse 88 08/02/22 12:00 Resp 18 08/02/22 12:00 BP 130/83 08/02/22 07:48 Pulse Ox 93 08/02/22 07:48 O2 Del Method 08/02/22 07:48 O2 Flow Rate 4 07/31/22 23:50 BMI result Body Mass Index 25.7 Appearance: Alert.? Oriented X3.? not in distress.? Eyes: Pupils equal, round and reactive to light.? Sclera nonicteric.? ENT: Pharynx normal.? Moist mucous membranes. cvs: rrr, [id number] . res:air entry seems improving,breath osund diminshed left>right. abd: no rebound or guarding ,nt, bs present. ext pulses present , no cyanosis . neuro: axo3 , nonfocal. Objective Data Active Medications Acetaminophen (Acetaminophen 325 Mg Tablet) 650 mg PO Q6H PRN PRN Reason: Pain, Mild (Pain Scale 1-3) Last Admin: 08/01/22 23:39 Dose: 650 mg Documented By: KHRIS Calcium Carbonate (Calcium Carbonate 500 Mg Tablet) 500 mg PO BID [facility] Last Admin: 08/02/22 08:53 Dose: 500 mg Documented By: CYN Cefuroxime Axetil (Cefuroxime Axetil 500 Mg Tablet) 500 mg PO Q12H [facility] Last Admin: 08/02/22 05:11 Dose: 500 mg Documented By: KHRIS Guaifenesin/Codeine Phosphate (Guaifen/Codeine Sf 200/20/10ml 10 Ml Liquid) 10 ml PO Q4H PRN PRN Reason: Cough Last Admin: 08/02/22 13:14 Dose: 10 ml Documented By: CYN Potassium Chloride (Potassium Chloride/H20) 10 meq in 100 mls @ 100 mls/hr IV Q1H [facility] Stop: 08/02/22 17:59 Ketorolac Tromethamine (Ketorolac Tromethamine 15 Mg/Ml Vial) 15 mg IVPUSH Q6H PRN PRN Reason: Pain, Mild (Pain Scale 1-3) Loperamide HCl (Loperamide Hcl 2 Mg Capsule) 2 mg PO Q4H PRN PRN Reason: diarrhae Last Admin: 08/02/22 09:15 Dose: 2 mg Documented By: CYN Magnesium Oxide (Magnesium Oxide 400 Mg Tablet) 800 mg PO DAILY [facility] Last Admin: 08/02/22 10:20 Dose: 800 mg Documented By: CYN Nicotine (Nicotine 21 Mg Patch.Td24) 21 mg TRANSDERMA DAILY [facility] Last Admin: 08/02/22 08:53 Dose: 21 mg Documented By: CYN Omeprazole (Omeprazole 20 Mg Capsule.Dr) 20 mg PO DAILY@0630 [facility] Last Admin: 08/02/22 05:11 Dose: 20 mg Documented By: KHRIS Ondansetron HCl (Ondansetron Hcl 4 Mg/2 Ml Vial) 4 mg IVPUSH Q8H PRN PRN Reason: Nausea and Vomiting Last Admin: 08/01/22 11:12 Dose: 4 mg Documented By: ROSIE Potassium Chloride (Potassium Chloride Packet 20 Meq Packet) 40 meq PO BID [facility] Last Admin: 08/02/22 10:19 Dose: 40 meq Documented By: CYN Potassium Phos/Sodium Phos (Sodium,Potassium Phosphates Powd.Pack) 2 packet PO QID [facility] Last Admin: 08/02/22 12:46 Dose: 2 packet Documented By: CYN Sodium Chloride (0.9 % Sodium Chloride Flush 3 Ml Syringe) 3 ml IVFLUSH QSHIFT [facility] Last Admin: 08/02/22 08:52 Dose: Not Given Documented By: CYN Non-Admin Reason: No Access Labs 08/02/22 05:50 08/02/22 13:42 Labs: Laboratory Results - last 24 hr 08/01/22 08/01/22 08/01/22 17:28 17:28 19:58 MCV MCH MCHC RDW Plt Count MPV Absolute Nucleated RBC Nucleated RBC % (auto) Anion Gap 14 Estim Creat Clear Calc 167.1 Estimated GFR > 60 Random Glucose 72 Calcium 7.5 L D Magnesium 0.9 L* Stl C. cayetanensis PCR Not Detected Stool Rotavirus A PCR Not Detected Stl Adenov F 40/ PCR Not Detected Stool Astrovirus (PCR) Not Detected Stool Campylobacter PCR Not Detected Stool Cryptosporidium PCR Not Detected Stl Sh Tox Pr E STEC PCR Not Detected Stool E coli O157 PCR Not applicable Stl Enterotoxigenic E PCR Not Detected Stool EPEC (PCR) Not Detected Stool EAEC (PCR) Not Detected Stl E. histolytica PCR Not Detected Stool Giardia Lamblia PCR Not Detected Stl P. shigelloides PCR Not Detected Stool Salmonella PCR Not Detected Stool Sapovirus (PCR) Not Detected Stl Shigella/EIEC PCR Not Detected St Y.enterocolitica PCR Not Detected Stool Vibrio (PCR) Not Detected Stl Vibrio cholerae PCR Not Detected Stl Norovirus GI/GII PCR Not Detected C. difficile Tox B Gene NEGATIVE 08/02/22 08/02/22 08/02/22 05:50 05:50 11:31 MCV 107.0 H MCH 39.7 H MCHC 37.1 H RDW 12.7 Plt Count 153 L MPV 10.4 Absolute Nucleated RBC 0.000 Nucleated RBC % (auto) 0.0 Anion Gap 16 15 Estim Creat Clear Calc 174.7 153.7 Estimated GFR > 60 > 60 Random Glucose 100 117 H Calcium 7.3 L 7.5 L Magnesium Stl C. cayetanensis PCR Stool Rotavirus A PCR Stl Adenov F / PCR Stool Astrovirus (PCR) Stool Campylobacter PCR Stool Cryptosporidium PCR Stl Sh Tox Pr E STEC PCR Stool E coli O157 PCR Stl Enterotoxigenic E PCR Stool EPEC (PCR) Stool EAEC (PCR) Stl E. histolytica PCR Stool Giardia Lamblia PCR Stl P. shigelloides PCR Stool Salmonella PCR Stool Sapovirus (PCR) Stl Shigella/EIEC PCR St Y.enterocolitica PCR Stool Vibrio (PCR) Stl Vibrio cholerae PCR Stl Norovirus GI/GII PCR C. difficile Tox B Gene 08/02/22 13:42 MCV MCH MCHC RDW Plt Count MPV Absolute Nucleated RBC Nucleated RBC % (auto) Anion Gap 16 Estim Creat Clear Calc 174.7 Estimated GFR > 60 Random Glucose 122 H Calcium 7.2 L Magnesium Stl C. cayetanensis PCR Stool Rotavirus A PCR Stl Adenov F 40/41 PCR Stool Astrovirus (PCR) Stool Campylobacter PCR Stool Cryptosporidium PCR Stl Sh Tox Pr E STEC PCR Stool E coli O157 PCR Stl Enterotoxigenic E PCR Stool EPEC (PCR) Stool EAEC (PCR) Stl E. histolytica PCR Stool Giardia Lamblia PCR Stl P. shigelloides PCR Stool Salmonella PCR Stool Sapovirus (PCR) Stl Shigella/EIEC PCR St Y.enterocolitica PCR Stool Vibrio (PCR) Stl Vibrio cholerae PCR Stl Norovirus GI/GII PCR C. difficile Tox B Gene Microbiology Microbiology Results: Microbiology 07/31/22 22:19 Blood Culture - Preliminary Blood - Venous No growth after 24 hours. 07/31/22 22:19 Blood Culture - Preliminary Blood - Venous No growth after 24 hours. 08/01/22 10:14 Gram Stain - Final Sputum - Expectorated Sputum Culture - Final Assessment and Plan (1) Hypocalcemia: Status: Acute (2) Hypomagnesemia: Status: Acute (3) Acute hypokalemia: Status: Acute (4) Pneumonia: Status: Acute Plan 31-year-old male presents to the hospital with complaints of feeling ill found to have pneumonia #? acute sepsis sec community-acquired pneumonia sepsis improved, tachycardia imrpoved , leukocytosis imrpoving,low grade fevers added sputum culture, strep and Legionella antigen, blood culture pending Continue IV antibiotics-ceftriaxone/azithromycin day 2-switch to po antibiotics, cough medication, not hypoxic. #? hypokalemia/hypomagnesemia, hypocalcemia:?? Due to decreased p.o. intake in the setting of acute sickness. Patient is still taking small amount of p.o. intake, also electrolytes are still low instead despite of repleting IV and p.o. -? repletediv and po potassium, magnesium, calcium -? follow BMP, added PTH, phosphorous, vitamin-D levels. #? nausea vomiting -? likely secondary to acute gastroenteritis in the setting of bacterial/viral infection -improving, encouraged to try diet,? IV fluids, supportive measure, antiemetics ?DVT prophylaxis:? Early ambulation On going hospital stay:?multiple electrolytic abnormalities need renal function and electrolytic monitoring and workup. Time Spent With Patient Time: Total time managing care of this patient today ____ minutes. Quality Stroke Does the patient have a stroke diagnosis?: No VTE Prior VTE?: No VTE Risk Level:: Medical - low VTE Device Contraindication: Treatment Not Indicated VTE Drug Contraindication: Treatment Not Indicated
[2022-08-02] MEDS: Calcium Gluconate/NaCl,Iso-Osm 1 GM/50 ML PLAST..BAG IV (15:18)
[2022-08-02] MEDS: 0.9 % Sodium Chloride Flush 3 ML SYRINGE IVFLUSH (15:19)
--- NOTE | 2022-08-02 15:38 | MHC.CM.PN ---
GE[facility] 08/02/22, EMR REVIEWED, PT ADMITTED W/CAP, CM MET W/PT WHO REPORT HE LIVES W/, IS INDEPENDENT W/ALL CARE, DENIES USE OF DME/SERVICES. PT CURRENTLY DENIES NEED FOR PCP HOWEVER CM DID PROVIDE PT WHO [facility] OF [facility] PROVIDERS AND ENCOURAGED PT TO CHOOSE ONE. PT DENIES BEING VACCINATED AGAINST COVID AND REPORTS HIS MOM MONALISA IS HIS HCP, COPY REQUESTED. D/C PLAN: HOME NO SERVICES W/ FOR TRANSPORT
[2022-08-02 15:43] VITALS: BP 134/65; RESP 20; TEMP 37.1; O2SAT 94
[2022-08-02] MEDS: Potassium Chloride/H20 10 MEQ/100 ML PIGGYBACK 100 MEQ IV (16:09)
--- NOTE | 2022-08-02 17:45 | PC.NURSE ---
Pt down to ED for IV placement, returned at 1240. Dr Rich aware that pt has IV access. New orders for IV meds. Pt received IV Magnesium and IV calcium Gluconate as well as a partial bag of IV potassium before IV infiltration. Dr Rich aware, IV removed. Meds adjusted by . Pt has not has n/v or diarrhea today. Tolerating po wel
[2022-08-02 20:00] VITALS: BP 131/78; PULSE 88; RESP 18; TEMP 36.1; O2SAT 96
[2022-08-03] VITALS (7 sets, daily range): BP systolic 124–151; BP diastolic 71–82; PULSE 70–92; RESP 16–18; TEMP 36.7–37.5; O2SAT 93–98
[2022-08-03] MEDS: Omeprazole 20 MG CAPSULE.DR PO (06:19)
[2022-08-03 07:30] LABS: Anion Gap 15 (12-20); Blood Urea Nitrogen < 3 mg/dL (9-16); Calcium 7.5 mg/dL (8.4-10.2); Carbon Dioxide 26 mmol/L (22-29); Chloride 96 mmol/L (96-108); Creatinine Clr Calc Pharmacy 202.3; Estimated Glomerular Filt Rate > 60; Glucose Random 94 mg/dL (60-115); Sodium 134 mmol/L (135-145)
[2022-08-03 08:37] LABS: Phosphorus 3.7 mg/dL (2.7-4.5)
[2022-08-03 08:41] LABS: Magnesium 1.4 mg/dL (1.6-2.6)
[2022-08-03] MEDS: Potassium Chloride Packet 20 MEQ PACKET 40 MEQ PO ×3 (08:43→21:35)
[2022-08-03] MEDS: Sodium,Potassium Phosphates POWD.PACK 2 PACKET PO ×4 (08:43→21:35)
[2022-08-03] MEDS: Nicotine 21 MG PATCH.TD24 TRANSDERMA (08:48)
[2022-08-03] MEDS: Magnesium Oxide 400 MG TABLET 800 MG PO ×2 (08:50→17:13)
[2022-08-03] MEDS: Loperamide HCl 2 MG CAPSULE PO (10:16)
[2022-08-03] MEDS: Ergocalciferol (Vitamin D2) 1,250 MCG CAPSULE 1250 MCG PO (10:16)
--- NOTE | 2022-08-03 11:27 | P.PNIM_ITS ---
Subjective Subjective Date of Service: 08/03/22 Interval History: Sepsis, pneumonia, multiple electrolytic abnormalities. Review of Systems P.o. intake is slightly better but still eating on little.? No fever or chills cough is improving Diarrhea is also improved . Physical Exam Vital Signs: Vital Signs: Last Vital Signs Temp 98.0 F 08/03/22 07:55 Pulse 70 08/03/22 07:55 Resp 16 08/03/22 07:55 BP 132/77 08/03/22 07:55 Pulse Ox 93 08/03/22 07:55 O2 Del Method 08/03/22 07:55 O2 Flow Rate 4 07/31/22 23:50 BMI result Body Mass Index 25.7 Appearance: Alert.? Oriented X3.? not in distress.? Eyes: Pupils equal, round and reactive to light.? Sclera nonicteric.? ENT: Pharynx normal.? Moist mucous membranes. cvs: rrr, [id number] . res:air entry seems improving,no rales or wheezing abd: no rebound or guarding ,nt, bs present. ext pulses present , no cyanosis . neuro: axo3 , nonfocal. Objective Data Active Medications Acetaminophen (Acetaminophen 325 Mg Tablet) 650 mg PO Q6H PRN PRN Reason: Pain, Mild (Pain Scale 1-3) Last Admin: 08/01/22 23:39 Dose: 650 mg Documented By: KHRIS Calcium Carbonate (Calcium Carbonate 500 Mg Tablet) 500 mg PO BID [facility] Last Admin: 08/03/22 08:40 Dose: 500 mg Documented By: CYN Cefuroxime Axetil (Cefuroxime Axetil 500 Mg Tablet) 500 mg PO Q12H [facility] Last Admin: 08/03/22 06:19 Dose: 500 mg Documented By: KHRIS Docusate Sodium (Docusate Sodium 100 Mg Capsule) 100 mg PO BEDTIME [facility] Ergocalciferol (Ergocalciferol (Vitamin D2) 1,250 Mcg Capsule) 1,250 mcg PO Q7D [facility] Last Admin: 08/03/22 10:16 Dose: 1,250 mcg Documented By: CYN Guaifenesin/Codeine Phosphate (Guaifen/Codeine Sf 200/20/10ml 10 Ml Liquid) 10 ml PO Q4H PRN PRN Reason: Cough Last Admin: 08/02/22 21:27 Dose: 10 ml Documented By: KHRIS Ketorolac Tromethamine (Ketorolac Tromethamine 15 Mg/Ml Vial) 15 mg IVPUSH Q6H PRN PRN Reason: Pain, Mild (Pain Scale 1-3) Loperamide HCl (Loperamide Hcl 2 Mg Capsule) 2 mg PO Q4H PRN PRN Reason: diarrhae Last Admin: 08/03/22 10:16 Dose: 2 mg Documented By: CYN Magnesium Oxide (Magnesium Oxide 400 Mg Tablet) 800 mg PO BIDWM [facility] Last Admin: 08/03/22 08:50 Dose: 800 mg Documented By: CYN Nicotine (Nicotine 21 Mg Patch.Td24) 21 mg TRANSDERMA DAILY [facility] Last Admin: 08/03/22 08:48 Dose: 21 mg Documented By: CYN Omeprazole (Omeprazole 20 Mg Capsule.Dr) 20 mg PO DAILY@0630 [facility] Last Admin: 08/03/22 06:19 Dose: 20 mg Documented By: KHRIS Ondansetron HCl (Ondansetron Hcl 4 Mg/2 Ml Vial) 4 mg IVPUSH Q8H PRN PRN Reason: Nausea and Vomiting Last Admin: 08/01/22 11:12 Dose: 4 mg Documented By: ROSIE Potassium Chloride (Potassium Chloride Packet 20 Meq Packet) 40 meq PO BID [facility] Last Admin: 08/03/22 10:16 Dose: 40 meq Documented By: CYN Potassium Phos/Sodium Phos (Sodium,Potassium Phosphates Powd.Pack) 2 packet PO QID [facility] Last Admin: 08/03/22 08:43 Dose: 2 packet Documented By: CYN Sodium Chloride (0.9 % Sodium Chloride Flush 3 Ml Syringe) 3 ml IVFLUSH QSHIFT [facility] Last Admin: 08/03/22 08:43 Dose: Not Given Documented By: CYN Non-Admin Reason: No Access Tramadol HCl (Tramadol Hcl 50 Mg Tablet) 50 mg PO Q4H PRN PRN Reason: Pain, Moderate (Pain Scale 4-6 Last Admin: 08/02/22 21:32 Dose: 50 mg Documented By: KHRIS Labs 08/02/22 05:50 08/03/22 05:37 Labs: Laboratory Results - last 24 hr 08/02/22 08/02/22 08/03/22 11:31 13:42 05:37 Anion Gap 15 16 15 Estim Creat Clear Calc 153.7 174.7 202.3 Estimated GFR > 60 > 60 > 60 Random Glucose 117 H 122 H 94 Calcium 7.5 L 7.2 L 7.5 L Phosphorus 3.7 Magnesium 1.0 L* 1.4 L* Microbiology Microbiology Results: Microbiology 07/31/22 22:19 Blood Culture - Preliminary Blood - Venous No growth after 48 hours. 07/31/22 22:19 Blood Culture - Preliminary Blood - Venous No growth after 48 hours. Assessment and Plan (1) Hypocalcemia: Status: Acute (2) Hypomagnesemia: Status: Acute (3) Acute hypokalemia: Status: Acute (4) Pneumonia: Status: Acute (5) Vitamin D deficiency: Status: Acute Plan 31-year-old male presents to the hospital with complaints of feeling ill found to have pneumonia #? acute sepsis sec community-acquired pneumonia sepsis improved, tachycardia imrpoved , leukocytosis imrpoving,low grade fevers added sputum culture, strep and Legionella antigen, blood culture pending Continue IV antibiotics-ceftriaxone/azithromycin day 2-switch to po antibiotics, cough medication, not hypoxic. #? hypokalemia/hypomagnesemia, hypocalcemia:?? Due to decreased p.o. intake in the setting of acute sickness. Patient is still taking small amount of p.o. intake, also electrolytes are still low instead despite of repleting IV and p.o. -? repletediv and po potassium, magnesium, calcium-still low electolytes but improving viatlin d low , pth pendin patient does not want iv line -since last iv lines multiple times -will continue to replete electrolytes aggressively but p.o., monitor BMP and renal function. In addition added vitamin-D because of low vitamin-D levels(with a min D deficiency) #? nausea vomiting -? likely secondary to acute gastroenteritis in the setting of bacterial/viral infection -improving, encouraged to try diet,? IV fluids, supportive measure, antiemetics ?DVT prophylaxis:? Early ambulation On going hospital stay:?multiple electrolytic abnormalities need renal function and electrolytic monitoring and workup. Time Spent With Patient Time: Total time managing care of this patient today ____ minutes. Quality Stroke Does the patient have a stroke diagnosis?: No VTE Prior VTE?: No VTE Risk Level:: Medical - low VTE Device Contraindication: Treatment Not Indicated VTE Drug Contraindication: Treatment Not Indicated
[2022-08-03] MEDS: guaiFEN/Codeine SF 200/20/10ML 10 ML LIQUID PO ×2 (12:34→21:35)
[2022-08-04 03:38] VITALS: BP 109/59; PULSE 75; RESP 16; TEMP 37.3; O2SAT 94
[2022-08-04] MEDS: Omeprazole 20 MG CAPSULE.DR PO (05:43)
[2022-08-04] MEDS: Magnesium Oxide 400 MG TABLET 800 MG PO ×3 (07:41→17:13)
[2022-08-04] MEDS: Sodium,Potassium Phosphates POWD.PACK 2 PACKET PO ×3 (07:42→17:12)
[2022-08-04] MEDS: Potassium Chloride Packet 20 MEQ PACKET 40 MEQ PO (07:42)
[2022-08-04] MEDS: Nicotine 21 MG PATCH.TD24 TRANSDERMA (07:43)
[2022-08-04 07:48] VITALS: BP 136/81; PULSE 82; RESP 18; TEMP 32.8; O2SAT 94
--- NOTE | 2022-08-04 08:25 | HO.PM.IMPN ---
Subjective Subjective Date of Service: 08/04/22 Interval History: Electrolytic abnormality follow-up Physical Exam Vital Signs: Vital Signs: Last Vital Signs Pulse 82 08/04/22 07:48 Resp 18 08/04/22 07:48 BP 136/81 08/04/22 07:48 Pulse Ox 94 08/04/22 07:48 O2 Del Method 08/04/22 07:48 O2 Flow Rate 4 07/31/22 23:50 BMI result Body Mass Index 25.7 Objective Data Active Medications Acetaminophen (Acetaminophen 325 Mg Tablet) 650 mg PO Q6H PRN PRN Reason: Pain, Mild (Pain Scale 1-3) Last Admin: 08/01/22 23:39 Dose: 650 mg Documented By: KHRIS Calcium Carbonate (Calcium Carbonate 500 Mg Tablet) 500 mg PO BID [facility] Last Admin: 08/04/22 07:44 Dose: 500 mg Documented By: LAURA Cefuroxime Axetil (Cefuroxime Axetil 500 Mg Tablet) 500 mg PO Q12H [facility] Last Admin: 08/04/22 05:43 Dose: 500 mg Documented By: GAVINO Docusate Sodium (Docusate Sodium 100 Mg Capsule) 100 mg PO BEDTIME [facility] Last Admin: 08/03/22 21:34 Dose: Not Given Documented By: GAVINO Non-Admin Reason: refused Ergocalciferol (Ergocalciferol (Vitamin D2) 1,250 Mcg Capsule) 1,250 mcg PO Q7D [facility] Last Admin: 08/03/22 10:16 Dose: 1,250 mcg Documented By: CYN Guaifenesin/Codeine Phosphate (Guaifen/Codeine Sf 200/20/10ml 10 Ml Liquid) 10 ml PO Q4H PRN PRN Reason: Cough Last Admin: 08/03/22 21:35 Dose: 10 ml Documented By: GAVINO Ketorolac Tromethamine (Ketorolac Tromethamine 15 Mg/Ml Vial) 15 mg IVPUSH Q6H PRN PRN Reason: Pain, Mild (Pain Scale 1-3) Loperamide HCl (Loperamide Hcl 2 Mg Capsule) 2 mg PO Q4H PRN PRN Reason: diarrhae Last Admin: 08/03/22 10:16 Dose: 2 mg Documented By: CYN Magnesium Oxide (Magnesium Oxide 400 Mg Tablet) 800 mg PO BIDWM [facility] Last Admin: 08/04/22 07:41 Dose: 800 mg Documented By: LAURA Nicotine (Nicotine 21 Mg Patch.Td24) 21 mg TRANSDERMA DAILY [facility] Last Admin: 08/04/22 07:43 Dose: 21 mg Documented By: LAURA Omeprazole (Omeprazole 20 Mg Capsule.Dr) 20 mg PO DAILY@0630 [facility] Last Admin: 08/04/22 05:43 Dose: 20 mg Documented By: GAVINO Ondansetron HCl (Ondansetron Hcl 4 Mg/2 Ml Vial) 4 mg IVPUSH Q8H PRN PRN Reason: Nausea and Vomiting Last Admin: 08/01/22 11:12 Dose: 4 mg Documented By: ROSIE Potassium Chloride (Potassium Chloride Packet 20 Meq Packet) 40 meq PO BID [facility] Last Admin: 08/04/22 07:42 Dose: 40 meq Documented By: LAURA Potassium Phos/Sodium Phos (Sodium,Potassium Phosphates Powd.Pack) 2 packet PO QID [facility] Last Admin: 08/04/22 07:42 Dose: 2 packet Documented By: LAURA Sodium Chloride (0.9 % Sodium Chloride Flush 3 Ml Syringe) 3 ml IVFLUSH QSHIFT [facility] Last Admin: 08/04/22 07:44 Dose: Not Given Documented By: LAURA Non-Admin Reason: No Access Tramadol HCl (Tramadol Hcl 50 Mg Tablet) 50 mg PO Q4H PRN PRN Reason: Pain, Moderate (Pain Scale 4-6 Last Admin: 08/02/22 21:32 Dose: 50 mg Documented By: KHRIS Labs 08/02/22 05:50 08/03/22 05:37 Labs: Laboratory Results - last 24 hr 08/03/22 05:37 Phosphorus 3.7 Magnesium 1.4 L* Assessment and Plan (1) Vitamin D deficiency: Status: Acute (2) Hypocalcemia: Status: Acute (3) Hypomagnesemia: Status: Acute (4) Community acquired pneumonia: Status: Acute (5) Acute hypokalemia: Status: Acute Plan 31-year-old male presents to the hospital with complaints of feeling ill found to have pneumonia #? acute sepsis sec community-acquired pneumonia sepsis improved, ?tachycardia imrpoved , leukocytosis imrpoving,low grade fevers added sputum culture, strep and Legionella antigen, blood culture pending Continue IV antibiotics-ceftriaxone/azithromycin day 2-switch to po antibiotics, cough medication, not hypoxic. #? hypokalemia/hypomagnesemia, hypocalcemia:?? Due to decreased p.o. intake in the setting of acute sickness. Patient is still taking small amount of p.o. intake, also electrolytes are still low instead despite of repleting IV and p.o. -? repletediv and po potassium, magnesium, calcium-still low electolytes but improving viatlin d low , pth pendin patient does not want iv line -since last iv lines multiple times -will continue to replete electrolytes aggressively but p.o., monitor BMP and renal function.? In addition added vitamin-D because of low vitamin-D levels(with a min D deficiency) #? nausea vomiting -? likely secondary to acute gastroenteritis in the setting of bacterial/viral infection -improving, encouraged to try diet,? IV fluids, supportive measure, antiemetics ?DVT prophylaxis:? Early ambulation On going hospital stay:?multiple electrolytic abnormalities need renal function and electrolytic monitoring and workup. Time Spent With Patient Time: Total time managing care of this patient today ____ minutes. Quality Stroke Does the patient have a stroke diagnosis?: No VTE Prior VTE?: No VTE Risk Level:: Medical - low VTE Device Contraindication: Treatment Not Indicated VTE Drug Contraindication: Treatment Not Indicated
[2022-08-04 09:49] LABS: Anion Gap 15 (12-20); Blood Urea Nitrogen < 3 mg/dL (9-16); Calcium 7.9 mg/dL (8.4-10.2); Carbon Dioxide 25 mmol/L (22-29); Chloride 98 mmol/L (96-108); Creatinine Clr Calc Pharmacy 192.2; Estimated Glomerular Filt Rate > 60; Glucose Random 149 mg/dL (60-115); Potassium 3.7 mmol/L (3.3-5.1); Sodium 134 mmol/L (135-145)
[2022-08-04 10:55] LABS: Magnesium 1.5 mg/dL (1.6-2.6)
[2022-08-04 11:34] VITALS: BP 132/71; PULSE 77; RESP 18; TEMP 37.2; O2SAT 95
[2022-08-04] MEDS: Azithromycin 500 MG TABLET PO (12:02)
--- NOTE | 2022-08-04 12:19 | PM.DS ---
DS: Providers Provider Date of Service: 08/04/22 Date of admission: 08/01/22 10:34 Primary care physician: Susan Physician Attending physician on discharge: Lucero Rich DS: Diagnosis Discharge Diagnosis (1) Vitamin D deficiency: Status: Acute (2) Hypocalcemia: Status: Acute (3) Hypomagnesemia: Status: Acute (4) Community acquired pneumonia: Status: Acute (5) Acute hypokalemia: Status: Acute (6) Sepsis: Status: Acute (7) Gastroenteritis: Status: Acute DS: Summary Hospital Course Hospital Course: 31-year-old male with? no significant past medical history? who presents to the hospital with complaints of feeling generally unwell.? Patient reports that for the past 3 days he has been having significant nausea vomiting diarrhea as well as upper respiratory symptoms including cough, shortness of breath to the point that he could not ambulate without becoming significantly short of breath and turning pale, reports subjective fevers, chills, and inability to tolerate any p.o. intake. ? On arrival to the ED patient hemodynamically stable? with a fever of 101, heart rate of 139 Labs are significant for WBC count of 29.9, left shift, potassium of 2.8, calcium 7.7, total bili of 2.2, AST of 95, ALT of 41, alk-phos of 2 5, influenza a RSV influenza B as well as COVID-19 negative.? Strep pyogenes negative. Chest x-ray shows patchy consolidation infiltrate in the left mid lung. hospital course: Patient was admitted for sepsis secondary to pneumonia found to have multiple electrolytic abnormalities in addition to that. Patient was started on IV antibiotics, blood cultures sent: Patient's symptom medically improved significantly, blood culture also negative, patient was is going home with p.o. antibiotics. Patient was advised to repeat chest imaging in 3-4 weeks to see resolution of pneumonia. Patient had diarrhea initially probably viral gastroenteritis which resolved spontaneously, GI panel and cdiff negative. Patient had multiple electrolytic abnormalities: Repleted potassium, magnesium, calcium, workup included vitamin-D deficiency, parathyroid hormone levels are still in the process. Patient is electrolytic abnormalities seems to be improved significantly with repletion of potassium, calcium, magnesium And vitamin d: Patient was strongly advised to continue p.o. potassium, magnesium, calcium as ordered. Also patient will need to continue vitamin-D for 12 weeks. Patient was strongly advised to follow-up with renal function and electrolytes outpatient with his PCP. Plan: Please complete the course of antibiotics as prescribed, repeat chest imaging in 3-4 weeks to see resolution of pneumonia. Please continue to take electrolytes including potassium, magnesium, calcium and vitamin-D as prescribed, need to follow up with BMP and electrolytes (potassium, magnesium, calcium),pth levels out patiently with PCP. Above management discussed with the patient in detail length he understand and in agreement with the above plan. Time Spent with Patient Time attestation: Total time managing care of this patient today ____ minutes. Discharge coordination time: Greater than 30 minutes Quality: Safe Use of Opioids Does Pt have an Active Cancer Diagnosis on the Problem List?: No Quality: Stroke Does the patient have a stroke diagnosis?: No Physical Exam Vital Signs: Vital Signs: Last Vital Signs Temp 98.9 F 08/04/22 11:34 Pulse 77 08/04/22 11:34 Resp 18 08/04/22 11:34 BP 132/71 08/04/22 11:34 Pulse Ox 95 08/04/22 11:34 O2 Del Method 08/04/22 11:34 O2 Flow Rate 4 07/31/22 23:50 BMI result Body Mass Index 25.7 Appearance: Alert.? Oriented X3.? not in distress.? Eyes: Pupils equal, round and reactive to light.? Sclera nonicteric.? ENT: Pharynx normal.? Moist mucous membranes. cvs: rrr, [id number] . res:air entry seems improving,no rales or wheezing abd: no rebound or guarding ,nt, bs present. ext pulses present , no cyanosis . neuro: axo3 , nonfocal. DS: Data Data Completed and Pending Labs on day of discharge: Laboratory Results - last 24 hr 08/01/22 08/04/22 10:14 09:17 Sodium 134 L Potassium 3.7 D Chloride 98 Carbon Dioxide 25 Anion Gap 15 BUN < 3 L Creatinine 0.60 Estim Creat Clear Calc 192.2 Estimated GFR > 60 Random Glucose 149 H Calcium 7.9 L Magnesium 1.5 L Ur L.pneumophila Ag Cancelled Ur Strep pneumoniae Ag Cancelled Preliminary micro results at discharge 07/31/22 22:19 Blood Culture - Preliminary Blood - Venous No growth after 48 hours. 07/31/22 22:19 Blood Culture - Preliminary Blood - Venous No growth after 48 hours. Imaging Chest x-ray: Radiologist's impression: ITS Impressions Chest X-Ray 07/31/22 21:09 IMPRESSION: Patchy consolidation/infiltrate left midlung. Discharge Plan Discharge Anticipated Discharge Date/Time: 08/04/22 11:49 Patient Disposition: Home, Self-Care Discharge Diagnosis: sepsis sec to pneumonia,multiple electrolytic abnormalities, vitamin-D deficiency. Referrals: Physician,None [Primary Care Provider] - 1 Week Discharge Medications: New potassium chloride 20 mEq Packet 20 meq PO DAILY Qty: 5 0RF magnesium oxide 400 mg (241.3 mg magnesium) Tablet 800 mg PO BIDWM Qty: 14 0RF calcium carbonate [Oyster Shell Calcium 500] 500 mg calcium (1,250 mg) Tablet 500 mg PO DAILY Qty: 30 0RF omeprazole 20 mg Capsule,Delayed Release(Dr/Ec) 20 mg PO DAILY@0630 Qty: 30 0RF ergocalciferol (vitamin D2) [Vitamin D2] 1,250 mcg (50,000 unit) Capsule 1,250 mcg PO Q7D Qty: 11 0RF cefuroxime axetil 500 mg Tablet 500 mg PO Q12H Qty: 14 0RF azithromycin 500 mg tablet 500 mg PO DAILY 5 Days Qty: 5 0RF Continued acetaminophen 325 mg Tablet 650 mg PO Q6H PRN (Reason: Pain) Discharge Orders: Discharge Order (Routine); Ordered 08/04/22 Ordered By: Lucero Rich Diet: Advance to usual diet Activity on Discharge: As tolerated Stand Alone Forms: Patient Portal Discharge page Care Plan Goals: Patient was admitted for sepsis secondary to pneumonia found to have multiple electrolytic abnormalities in addition to that. Patient was started on IV antibiotics, blood cultures sent: Patient's symptom medically improved significantly, blood culture also negative, patient was is going home with p.o. antibiotics. Patient was advised to repeat chest imaging in 3-4 weeks to see resolution of pneumonia. Patient had multiple electrolytic abnormalities: Repleted potassium, magnesium, calcium, workup included vitamin-D deficiency, parathyroid hormone levels are still in the process. Patient is electrolytic abnormalities seems to be improved significantly with repletion of potassium, calcium, magnesium And vitamin d: Patient was strongly advised to continue p.o. potassium, magnesium, calcium as ordered. Also patient will need to continue vitamin-D for 12 weeks. Patient was strongly advised to follow-up with renal function and electrolytes outpatient with his PCP. Above management discussed with the patient in detail length he understand and in agreement with the above plan. Health Concerns: as above. Plan of Treatment: As above. Assessment: As above. Patient Instructions: Hypokalemia (DC), Hypocalcemia (DC), Hypomagnesemia (DC), Vitamin D Deficiency (GEN)
--- NOTE | 2022-08-04 14:32 | MHC.CM.PN ---
PT MEDICALLY CLEARED FOR D/C HOME NO SERVICES W/ FOR TRANSPORT
[2022-08-04 16:10] LABS: Calcium (PTHI) 6.7 mg/dL (8.6-10.3); PTHI 26 pg/mL (16-77)
== END 2022-08-04 18:57 | disposition home or self-care (01) | DRG 720 ==
LOC: HO.ED 23:34 → HO.EDOVER 23:55 → HO.S3 08-01 14:05
PROVIDERS: Nurse Practitioner Family; Admitting Provider Internal Medicine; Emergency Provider Internal Medicine; Visit Provider Internal Medicine
DX: A41.9 Sepsis, unspecified organism (principal); J18.9 Pneumonia, unspecified organism; K52.9 Noninfective gastroenteritis and colitis, unspecified; E55.9 Vitamin D deficiency, unspecified; E83.51 Hypocalcemia; F17.210 Nicotine dependence, cigarettes, uncomplicated; E83.42 Hypomagnesemia; E87.6 Hypokalemia; Z20.822 Contact with and (suspected) exposure to COVID-19; Z28.310 Unvaccinated for COVID-19; Z71.6 Tobacco abuse counseling; Z79.899 Other long term (current) drug therapy
CPT/HCPCS: 0241U; 36415; 71045; 80048; 80076; 80307; 82306; 83605; 83735; 83970; 84100; 84145; 85025; 85027; 87040; 87070; 87205; 87493; 87507; 87651; 99221; 99285; J0456; J0611; J0696; J1885; J2405; J3475

== ENCOUNTER 2023-12-08 22:07 | Inpatient (IN) | payer BC, SELFPAY ==
[2023-12-08 22:55] VITALS: BP 140/74; PULSE 99; RESP 17; TEMP 36.1; O2SAT 98; BMI 25.8
--- NOTE | 2023-12-08 22:55 | ED_ITS ---
HPI - Psych General Chief Complaint: Psychiatric Symptoms Stated Complaint: Crisis Eval Time Seen by Provider: 12/08/23 22:44 Source: patient and RN notes reviewed Mode of arrival: ambulatory Limitations: no limitations History of Present Illness ED Provider: Blossom Simmons PA-C HPI Narrative: This is a 32-year-old male, with a history of prior opioid use disorder (5 years without opioids) and alcohol use disorder, who presents emergency department for psychiatric evaluation. Patient states that he feels as though something is wrong with him as he has had difficulty managing his emotions, reporting increased anger, depression and anxiety. He states that he has never been psychiatrically evaluated and would like to ?figure out what is wrong with me?. Patient reports history of opioid use disorder, states he has been 5 years clean. He does report that he uses psilocybin. He also reports that he drinks alcohol, states that he used to drink alcohol daily however became an issue at work and now only drinks alcohol on the weekends. He states that he drinks approximately 15 nips as well as a 6 pack of beer on weekend days, states that he does not drink during the week however admits to drinking 2 beers prior to his arrival in the emergency room today. He denies history of alcohol withdrawal. He states that physically he is feeling well, denies any headaches, dizziness, chest pain, shortness of breath, abdominal pain, nausea, vomiting or diarrhea. He denies taking any medications today. Denies suicidal or homicidal ideation. Denies visual or auditory hallucination. See states he was previously on BuSpar however has not been on any psychiatric medications recently. He has a primary care physician out of [facility]. No other complaints or concerns at this time. MD complaint: feels depressed, anxiety and alcohol abuse Onset (ago): year(s) Duration: constant History of same: Yes Relieving factors: none Exacerbating factors: none Context: recent alcohol abuse Associated psychiatric symptoms: depression Associated symptoms: denies other symptoms Treatments prior to arrival: none Related Data Home Medications ?Medication ?Instructions ?Recorded ?Confirmed No Known Home Meds 12/09/23 12/09/23 Allergies Allergy/AdvReac Type Severity Reaction Status Date / Time No Known Allergies Allergy Verified 12/08/23 23:03 [No Known Allergies*] Review of Systems 2 Review of Systems: Yes all other systems are reviewed and are negative Constitutional: Constitutional: Reports as per [facility] Past Medical History Attestation statement: The following information was validated with the patient. Medical History No pertinent past medical history Surgical History No pertinent past surgical history Social History Social History Household Members: Significant Other, Children and Other Housing: Apartment Do you presently have visiting nurse or other home services: No Alcohol intake: current Alcohol intake frequency: does not drink Patient Tobacco Use Status: Current everyday Tobacco user Tobacco use type: Cigarette e-Cigarette/Vaping Use: Never Used Substance Use Type: Marijuana Advance Directives: Yes Advance Directives on File: Yes Advance Directives Date on File: 08/01/22 Do you have a plan to hurt others: No Plan service: No Current occupational status: employed Physical Exam 2 Vital Signs: Vital Signs: Last Vital Signs Temp 97 F 12/08/23 22:55 Pulse 99 12/08/23 22:55 Resp 17 12/08/23 22:55 BP 140/74 H 12/08/23 22:55 Pulse Ox 98 12/08/23 22:55 O2 Del Method Room Air 12/08/23 22:55 BMI result Body Mass Index 25.8 Const: General: cooperative, comfortable and no acute distress O rientation/consciousness: patient oriented x3 Limitations: no limitations HEENT: Head: Yes normal to inspection, Yes normocephalic and Yes atraumatic Ears: hearing grossly normal bilaterally General nose exam: Normal external nose present Face and sinus: Yes normal facial exam Mouth: Normal oral and palatal mucosa present, oropharynx normal and moist mucous membranes Throat: Yes posterior oropharynx normal Eyes: General: appearance normal, both eyes and all related structures E yelids: Yes eyelids normal Conjunctivae: conjunctivae normal Sclerae: s clerae normal Pupils: Equal, round and reactive pupils present EOM: EOMs intact bilaterally Neck: Neck: Yes normal visual inspection, Yes full ROM and Yes no lymphadenopathy Lymphatic: no lymphadenopathy noted Chest: Chest palpation & inspection: normal inspection of the chest Resp: Effort & Inspection: normal respiratory effort and able to speak in complete sentences Auscultation: clear to auscultation bilaterally, no crackles, no rales, no rhonchi and no wheezes Cardio: Rate: regular rate Rhythm: regular rhythm Heart sounds: S1 normal heart sound present and S2 normal heart sound present GI: Inspection: Yes normal to inspection Skin: General skin exam: no rashes or lesions noted Trauma: no lacerations or abrasions Wounds: no wounds Neuro: General: patient oriented x3 and moves all extremities Cranial nerves: Yes Equal, round and reactive pupils present Extrem: General: Yes normal to inspection Right upper extremity: normal to inspection Left upper extremity: normal to inspection Right lower extremity: normal to inspection Left lower extremity: normal to inspection Psych: Appearance: grossly normal Mental Status: mental status grossly normal Speech and movement: Normal speech and movement present Affect: n ormal affect Attitude: cooperative Thought process: Perseverating thought process present Insight: Limited insight present (Psych) Judgement: L imited judgement present (Psych) Course Reevaluation(s) Reevaluation #1: Labs return, patient has alcohol level of 305, positive for marijuana, drug screen otherwise negative. Urine does have moderate leuk esterases patient has no urinary symptoms therefore will await culture team whether not this is a true infection. Awaiting CBC Time: 01:29 Reevaluation #2: Laboratories having difficulties transferring results, received through fax. Patient has no leukocytosis, WBC 4.8, hemoglobin hematocrit at 13.6/38.7, platelets 239. Patient medically cleared at this point, will await care team consult. CIWA scale also ordered, patient has no history of alcohol withdrawal seizures however given elevated etoh level at 305. At this time, physician observation initiated pending care team consult and addiction Medicine Services. Time: 01:53 Medications Administered Discontinued Medications Generic Name Dose Route Start Last Admin Trade Name Freq PRN Reason Stop Dose Admin Nicotine 21 mg 12/08/23 23:04 12/08/23 23:14 Nicotine 21 Mg Patch.[id number] TRANSDERMA 12/08/23 23:05 21 mg ONCE ONE Administration Medical Decision Making Medical Decision Making [facility] Narrative: This is a 32-year-old male, with a history of polysubstance abuse and alcohol abuse, who presents emergency department for psychiatric evaluation . He denies suicidal or homicidal ideation. He denies visual or auditory hallucination. Expresses alcohol use disorder however states that he only drinks on the weekends, he does have alcohol halitosis on examination. He has no physical complaints. He is speaking in full sentences, and is cooperative. He would like to be evaluated due to difficulty managing his emotions including depression, anxiety and anger outbursts. He has never been psychiatrically evaluated. On arrival, vital signs within normal limits. Lungs clear to auscultation bilaterally. Abdomen is soft and nontender. Patient does smoke half a pack per day, nicotine patch ordered. Plan: Labs, UA, care team Differential Diagnosis Differential Diagnoses: The differential diagnosis associated with the presentation includes Depression, anxiety, suicidal ideation, homicidal ideation, polysubstance abuse, alcohol abuse Admission/Observation Consideration of admission/observation: Escalation of care including admission/observation considered Lab Data MDM Lab Attestation statement: I reviewed the patient's lab results. No leukocytosis, wbc's at 4.8, H&H 13.6/37, platelets 239 (see scanned report if not crossed over) 12/08/23 23:50 Labs: Lab Results 12/08/23 12/08/23 12/08/23 Range/Units 23:15 23:20 23:50 Sodium 146 H (135-145) mmol/L Potassium 3.4 (3.3-5.1) mmol/L Chloride 109 H (96-108) mmol/L Carbon Dioxide 23 (22-29) mmol/L Anion Gap 17 (12-20) BUN 9 (9-16) mg/dL Creatinine 0.76 (0.5-1.4) mg/dL Estim Creat Clear Calc 150.3 Estimated GFR > 60 Random Glucose 118 H (60-115) mg/dL Calcium 8.9 D (8.4-10.2) mg/dL Total Bilirubin 0.3 (0.0-1.0) mg/dL Direct Bilirubin 0.1 (0.0-0.5) mg/dL AST 33 (5-37) U/L ALT 42 H (0-40) U/L Alkaline Phosphatase 78 (39-117) U/L Total Protein 8.1 H (6.5-8.0) g/dL Albumin 4.4 (3.5-5.0) g/dL TSH 1.50 (0.32-4.0) uIU/mL Urine Color Yellow Urine Appearance Turbid Urine pH 5.5 (5.0-9.0) Ur Specific [place] >= 1.030 H (1.005-1.025) Urine Protein 30 (1+) H (Neg-Trace) mg/dL Urine Glucose (UA) Negative (Negative) mg/dL Urine Ketones Trace (Negative) mg/dL Urine Blood Negative (Negative) Urine Nitrite Negative (Negative) Ur Leukocyte Esterase Moderate (2+) H (Negative) Urine RBC 0-2 (0-2) /HPF Urine WBC 21-50 H (0-5) /HPF Ur Squamous Epith Cells 0-2 (0-2) /HPF Urine Bacteria None Seen (None Seen) Hyaline Casts 3-5 (0-2) /LPF Salicylates < 5.0 L (15-30) mg/dL Urine Opiates Screen Not Detected (Not Detect) Ur Buprenorphine Scrn Not Detected (Not Detect) ng/mL Ur Oxycodone Screen Not Detected (Not Detect) ng/mL Urine Methadone Screen Not Detected (Not Detect) ng/mL Urine Fentanyl Screen Not Detected (Not Detect) Acetaminophen < 3 (<30) mcg/mL Ur Barbiturates Screen Not Detected (Not Detect) Ur Phencyclidine Scrn Not Detected (Not Detect) Ur Amphetamines Screen Not Detected (Not Detect) U Benzodiazepines Scrn Not Detected (Not Detect) Urine Cocaine Screen Not Detected (Not Detect) U Marijuana (THC) Screen POSITIVE H (Not Detect) Ethyl Alcohol 305 H* mg/dL Discharge Plan Discharge Clinical Impression: Alcohol abuse Depression Qualifiers: Depression Type: unspecified Qualified Code(s): F32.A - Depression, unspecified Patient Disposition: Still a Patient Prescriptions: No Action No Known Home Meds Interventions: Childress-Suicide Risk Severity Scale Last Done: 12/09/23 00:36 Print Language: Setswana
[2023-12-08] MEDS: Nicotine 21 MG PATCH.TD24 TRANSDERMA (23:14)
[2023-12-08 23:59] LABS: Basophils Percent Auto 0.6 % (0-2); Eosinophils Absolute Auto 0.1 X10*3/uL (0.0-0.4); Eosinophils Percent Auto 1.3 % (0-4); Hematocrit 38.7 % (42.0-52.0); Hemoglobin 13.6 g/dl (14.0-18.0); Imm Gran Abs Auto 0.01 X10*3/uL (0.00-0.03); Imm Gran Pct Auto 0.2 % (0.0-0.4); Lymphocytes Absolute Auto 2.4 X10*3/uL (1.2-4.9); Lymphocytes Percent Auto 51.2 % (20-40); Mean Corpuscular HGB Conc 35.1 g/dl (31.0-36.0); Mean Corpuscular Hemoglobin 34.2 pg (27.0-33.0); Mean Corpuscular Volume 97.2 fL (80.0-98.0); Monocytes Absolute Auto 0.3 X10*3/uL (0.1-1.2); Monocytes Percent Auto 6.7 % (2-11); Neutrophils Absolute Auto 1.9 x10*3/uL (2.0-8.3); Platelet Count 239 X10*3/uL (160-400); Red Blood Count 3.98 X10*6/uL (4.60-5.80); Red Cell Distribution Width 12.4 % (11.0-16.0); White Blood Count 4.8 X10*3/uL (4.8-10.8)
[2023-12-09] LABS: Appearance Urine Turbid; Color Urine Yellow; Glucose Urine UA Negative (Negative); Leukocyte Esterase Urine Moderate (2+) (Negative); Nitrite Urine Negative (Negative); PH 5.5 (5.0-9.0); Specific Gravity - Urine >= 1.030 (1.005-1.025); UMIC TRIGGER UACC YES; Urine Blood Negative (Negative); Urine Ketones Trace mg/dL (Negative); Urine Protein 30 (1+) mg/dL (Neg-Trace)
--- NOTE | 2023-12-09 | ECG_ITS ---
Test Reason : SEIZURE Blood Pressure : / mmHG Vent. Rate : 084 BPM Atrial Rate : 084 BPM P-R Int : 164 ms QRS Dur : 080 ms QT Int : 362 ms P-R-T Axes : 058 022 036 degrees QTc Int : 427 ms Normal sinus rhythm Normal ECG No previous ECGs available Referred By: Mandy Vega Electronically Signed By:
[2023-12-09 00:05] LABS: Bacteria Urine None Seen (None Seen); RBC Urine 0-2 /HPF (0-2); Squamous Epithelial Cell Urine 0-2 /HPF (0-2); UACC Culture Trigger YES; WBC Urine 21-50 /HPF (0-5)
--- NOTE | 2023-12-09 00:34 | MHC.EDTECH ---
pt labs drawn and sent. received by lab. RN AWARE
[2023-12-09 00:56] LABS: Anion Gap 17 (12-20)
[2023-12-09 00:59] LABS: Acetaminophen LAB < 3 mcg/mL (<30); Salicylate < 5.0 mg/dL (15-30)
[2023-12-09 01:02] LABS: Amphetamine Screen Urine Not Detected (Not Detect); Barbiturates, Urine Not Detected (Not Detect); Benzodiazepines Screen Urine Not Detected (Not Detect); Buprenorphine Scr Not Detected (Not Detect); Cannabinoid Screen Urine POSITIVE (Not Detect); Cocaine Screen Urine Not Detected (Not Detect); Fentanyl, urine Not Detected (Not Detect); Methadone Screen, Urine Not Detected (Not Detect); Opiate Screen Urine Not Detected (Not Detect); Oxycodone Screen Urine Not Detected (Not Detect); Phencyclidine Screen Urine Not Detected (Not Detect)
[2023-12-09 01:07] LABS: Alanine Aminotransferase 42 U/L (0-40); Albumin Level 4.4 g/dL (3.5-5.0); Alkaline Phosphatase 78 U/L (39-117); Aspartate Amino Transferase 33 U/L (5-37); Bilirubin Direct 0.1 mg/dL (0.0-0.5); Bilirubin Total 0.3 mg/dL (0.0-1.0); Blood Urea Nitrogen 9 mg/dL (9-16); Calcium 8.9 mg/dL (8.4-10.2); Carbon Dioxide 23 mmol/L (22-29); Chloride 109 mmol/L (96-108); Creatinine Clr Calc Pharmacy 150.3; Estimated Glomerular Filt Rate > 60; Ethanol 305 mg/dL; Glucose Random 118 mg/dL (60-115); Potassium 3.4 mmol/L (3.3-5.1); Sodium 146 mmol/L (135-145); Total Protein 8.1 g/dL (6.5-8.0)
[2023-12-09 06:25] VITALS: BP 115/69; PULSE 72; RESP 17; TEMP 36.9; O2SAT 95
--- NOTE | 2023-12-09 06:33 | PC.NURSE ---
Patient slept through the night, no distress observed/reported, VSS, care consult ordered, pending evaluation, will continue to monitor
--- NOTE | 2023-12-09 07:05 | PC.NURSE ---
Assumed care of patient at 0645. Patient is observed sleeping in their bed. No signs of distress observed/reported. Breathing is even and unlabored.
--- NOTE | 2023-12-09 08:51 | MHC.RECOVRN ---
Received Addiction Medicine consult for alcohol use and hx OUD. Chart reviewed. Pt had presented to the ED for psychiatric evaluation, CARE Team consult ordered. Plan to see pt after cleared by CARE Team.
--- NOTE | 2023-12-09 10:41 | MHC.CARE ---
Patient is voluntary for [facility].
--- NOTE | 2023-12-09 17:47 | PC.ADMIT ---
João is a 32 year old male from [facility] pod here on a CV after self presenting for psychiatric evaluation. João feels as though something is wrong with him as he has had difficulty managing his emotions reporting increased anger, depression and anxiety. This is his first psych eval and his first inpatient admission. João has an OUD history and has been in remission for 5 years. He reports using Psilocybin, reports alcohol use on the weekend (typically 15 nips plus a six pack on weekend days) due to having to work during the week however drank a sleeve of nips and a couple of beers prior to admission. João is A&O x 4 and fully cooperative with the admission process. His mood is flat and tone is appropriate. João does not feel that he has an alcohol use problem however was agreeable to an addiction consult. Denies history of withdrawal. Denies SI,HI. Endorses depression and anxiety. Skin check performed, patient oriented to unit and placed on 15 minute checks for safety.
[2023-12-09 20:00] VITALS: BP 142/81; PULSE 81; RESP 16; TEMP 36.9; O2SAT 97
[2023-12-09] MEDS: traZODone HCL 50 MG TABLET PO (21:30)
[2023-12-09] MEDS: LORazepam 1 MG TABLET PO (21:30)
--- NOTE | 2023-12-10 | ECG_ITS ---
Test Reason : QTC CHECK Blood Pressure : / mmHG Vent. Rate : 057 BPM Atrial Rate : 057 BPM P-R Int : 136 ms QRS Dur : 096 ms QT Int : 428 ms P-R-T Axes : 032 067 032 degrees QTc Int : 416 ms Sinus bradycardia Otherwise normal ECG No previous ECGs available Referred By: Mandy Vega Electronically Signed By:Alexander Zazueta
[2023-12-10 07:00] VITALS: BMI 25.0
[2023-12-10 08:00] VITALS: BP 136/76; PULSE 55; RESP 20; TEMP 36.2; O2SAT 97
[2023-12-10 09:04] VITALS: BP 136/76; PULSE 55; RESP 17; TEMP 37.2; O2SAT 97
[2023-12-10 09:24] LABS: Estimated Average Glucose 100 mg/dL; Hemoglobin A1c % 5.1 % (<6.0)
[2023-12-10 09:37] LABS: Cholesterol 191 mg/dL (<200); HDL Cholesterol 59 mg/dL (>40); LDL Cholesterol Calculated 95 mg/dL (<100); Magnesium 1.6 mg/dL (1.6-2.6); Triglycerides 189 mg/dL (<150)
[2023-12-10] MEDS: Multivitamin TABLET 1 TAB PO (09:46)
[2023-12-10] MEDS: Thiamine HCL 100 MG TABLET PO (09:46)
[2023-12-10] MEDS: Folic Acid 1 MG TABLET PO (09:46)
[2023-12-10 09:51] LABS: Free T4 (Free Thyroxine) 0.88 ng/dL (0.71-1.85); Thyroid Stimulating Hormone 2.06 uIU/mL (0.32-4.0)
[2023-12-10 10:56] LABS: Folate 5.9 ng/mL (> or = 4.0); Vitamin B12 371 pg/mL (200-900)
[2023-12-10] MEDS: Nicotine 21 MG PATCH.TD24 TRANSDERMA (11:54)
[2023-12-10] MEDS: Nicotine Polacrilex 2 MG GUM 4 MG BUCCAL (11:54)
--- NOTE | 2023-12-10 12:14 | MHC.RECOVRN ---
AUDIT-C Brief Intervention Pt had positive screen for unhealthy alcohol use on admission. Pt declined to meet with [facility] to discuss alcohol use and resources.
--- NOTE | 2023-12-10 15:32 | P.HPPS_ITS ---
HPI Date of Service: 12/10/23 Chief Complaint: Depression, mood dysregulation Sources of Information: patient interviewed, chart reviewed and crisis/core team assessment reviewed HPI Subjective Notes: [place] Warning and Conditional Voluntary Healthcare Proxy: No Guardianship: No Medical Problems Affecting Mental Status: No Narrative: 32 yo male presents with reports of increasing sx of mood lability, anger, depression, anxiety, hopelessness and passive SI. States moods cycle quickly and usually for minor reasons- states he finds that he is in good control with more serious issues, but with the little things I don't do well with. Stressors include work, finances, life, money, and stupid people . Reports symptoms have significantly increased over the past months. Pt would like to work on decreasing irritability, stabilizing mood, and not feeling like I am a loose cha Past Psychiatric History: IP: Denies OP: No current alliances Trials: Buspirone Medical Evaluation Reviewed: Yes [facility] Medical History (Updated 12/10/23 @ 19:01 by Mandy Vega, MAIA) Mood disorder No pertinent past medical history Surgical History No pertinent past surgical history Family History: Everyone I think has a bit of it. Mom with anxiety, most family members are not treated Social History: Born in [place], has one half brother and one half sister. Raised by parents. GED. Did 13 years of school, started working at 14. Has very high IQ, aced [employer] and received an award but hated school and found it boring. Works as a machinist bench, lives with iris and 10 yo daughter. Enjoys hiking, gwendolyn diving, guitar, drums, skate boarding, pool and ax darts. Reports photographic memory. No legal issues. Hx of arrests for fighting, substance use Substance History: Heroin- sober 5 years Alcohol Mushrooms Hx of detox-[facility] and 4 others, Hx Suboxone Cannabis-helps regulate mood Trauma History: Denies Diagnostics Vital Signs (24Hr): Vital Signs - 24 hr 12/09/23 20:00 12/10/23 08:00 12/10/23 09:04 Temperature 98.4 F 97.1 F 98.9 F Pulse Rate 81 55 55 Respiratory Rate 16 20 17 Blood Pressure 142/81 H 136/76 136/76 Pulse Oximetry 97 97 97 Oxygen Delivery Method Room Air Room Air Room Air BMI result Body Mass Index 25.0 Labs 12/08/23 23:48 12/08/23 23:50 Labs: Laboratory Results - last 48 hr 12/08/23 12/08/23 12/08/23 23:15 23:20 23:48 WBC 4.8 RBC 3.98 L D Hgb 13.6 L Hct 38.7 L D MCV 97.2 MCH 34.2 H MCHC 35.1 RDW 12.4 Plt Count 239 D MPV 9.0 L Immature Gran % (Auto) 0.2 Neut % (Auto) 40.0 L Lymph % (Auto) 51.2 H [place] % (Auto) 6.7 Eos % (Auto) 1.3 Baso % (Auto) 0.6 Lymph # (Auto) 2.4 [place] # (Auto) 0.3 Eos # (Auto) 0.1 Baso # (Auto) 0.0 Abs Immat Gran (auto) 0.01 Absolute Neuts (auto) 1.9 L Absolute Nucleated RBC 0.000 Nucleated RBC % (auto) 0.0 Sodium Potassium Chloride Carbon Dioxide Anion Gap BUN Creatinine Estim Creat Clear Calc Estimated GFR Random Glucose Estimat Average Glucose Hemoglobin A1c % Calcium Magnesium Total Bilirubin Direct Bilirubin AST ALT Alkaline Phosphatase Total Protein Albumin Triglycerides Cholesterol LDL Cholesterol, Calc HDL Cholesterol Vitamin B12 Folate TSH Free T4 Urine Color Yellow Urine Appearance Turbid Urine pH 5.5 Ur Specific [place] >= 1.030 H Urine Protein 30 (1+) H Urine Glucose (UA) Negative Urine Ketones Trace Urine Blood Negative Urine Nitrite Negative Ur Leukocyte Esterase Moderate (2+) H Urine RBC 0-2 Urine WBC 21-50 H Ur Squamous Epith Cells 0-2 Urine Bacteria None Seen Hyaline Casts 3-5 Salicylates < 5.0 L Urine Opiates Screen Not Detected Ur Buprenorphine Scrn Not Detected Ur Oxycodone Screen Not Detected Urine Methadone Screen Not Detected Urine Fentanyl Screen Not Detected Acetaminophen < 3 Ur Barbiturates Screen Not Detected Ur Phencyclidine Scrn Not Detected Ur Amphetamines Screen Not Detected U Benzodiazepines Scrn Not Detected Urine Cocaine Screen Not Detected U Marijuana (THC) Screen POSITIVE H Ethyl Alcohol 12/08/23 12/10/23 23:50 08:59 WBC RBC Hgb Hct MCV MCH MCHC RDW Plt Count MPV Immature Gran % (Auto) Neut % (Auto) Lymph % (Auto) [place] % (Auto) Eos % (Auto) Baso % (Auto) Lymph # (Auto) [place] # (Auto) Eos # (Auto) Baso # (Auto) Abs Immat Gran (auto) Absolute Neuts (auto) Absolute Nucleated RBC Nucleated RBC % (auto) Sodium 146 H Potassium 3.4 Chloride 109 H Carbon Dioxide 23 Anion Gap 17 BUN 9 Creatinine 0.76 Estim Creat Clear Calc 150.3 Estimated GFR > 60 Random Glucose 118 H Estimat Average Glucose 100 Hemoglobin A1c % 5.1 Calcium 8.9 D Magnesium 1.6 Total Bilirubin 0.3 Direct Bilirubin 0.1 AST 33 ALT 42 H Alkaline Phosphatase 78 Total Protein 8.1 H Albumin 4.4 Triglycerides 189 H Cholesterol 191 LDL Cholesterol, Calc 95 HDL Cholesterol 59 Vitamin B12 371 Folate 5.9 TSH 1.50 2.06 Free T4 0.88 Urine Color Urine Appearance Urine pH Ur Specific [place] Urine Protein Urine Glucose (UA) Urine Ketones Urine Blood Urine Nitrite Ur Leukocyte Esterase Urine RBC Urine WBC Ur Squamous Epith Cells Urine Bacteria Hyaline Casts Salicylates Urine Opiates Screen Ur Buprenorphine Scrn Ur Oxycodone Screen Urine Methadone Screen Urine Fentanyl Screen Acetaminophen Ur Barbiturates Screen Ur Phencyclidine Scrn Ur Amphetamines Screen U Benzodiazepines Scrn Urine Cocaine Screen U Marijuana (THC) Screen Ethyl Alcohol 305 H* Meds/Allergies Meds Home Medications ?Medication ?Instructions ?Recorded ?Confirmed ?Type No Known Home Meds 12/09/23 12/09/23 History Allergies Allergies Allergy/AdvReac Type Severity Reaction Status Date / Time No Known Allergies Allergy Verified 12/08/23 23:03 [No Known Allergies*] Mental Status Exam Mental Status Exam Patient Appearance: Appropriate Patient Orientation: Person, Place, Time and Situation Level of Consciousness: Alert Patient Behavior: Talkative and Good Eye Contact Mood Description: Constricted Affect Description: Constricted Patient Cognition Impaired: No Ability to Follow Directions: Good Speech Pattern: Spontaneous Speech Memory Description: Intact Hallucinations: None Delusions: Not Present Thought Process: Goal Oriented Thought Content: positive for Goal Oriented and positive for Suicidal Ideation (passive) Depressive Symptoms: Increased Irritability and Thoughts of /Suicide (passive) Judgement: Good Assessment & Plan Assessment & Plan (1) Alcohol abuse: Status: Acute Code(s): F10.10 - Alcohol abuse, uncomplicated (2) Mood disorder: Status: Acute Code(s): F39 - Unspecified mood [affective] disorder Plan 32 yo male, history of mood disorder, polysubstance use disorder with reports of increasing lability, increasing intensity of mood sx. Review of bipolar disorder and medication choices with pt. Will begin a trial. Plan: Admit, CV 15 minute checks Olanzapine 5 mg HS Collateral contact with family Encourage full milieu, however, pt is not a group oriented person. Patient educated on: medication risk/benefits and therapeutic strategies Informed Consent: understands Reason for continued inpatient stay Substantial Risk for: rapid decompensation Statement Statement: I have reviewed the history and physical and performed a pertinent examination on my patient. No changes have occurred unless specified. If the History and Physical was not performed prior to admission, the Hospitalist's service will be consulted for completing the admission physical. Time Spent With Patient Time: Total time managing care of this patient today ____ minutes.
--- NOTE | 2023-12-10 17:52 | PC.NURSE ---
Comfortable throughout shift, denying s/s of alcohol withdrawal and CIWA scores . Declined any prn medication for anxiety as he reports it's manageable. Isolating to self and spending time in room reading book to pass time.
[2023-12-10 20:00] VITALS: BP 139/85; PULSE 69; RESP 18; TEMP 37; O2SAT 99
[2023-12-10] MEDS: hydrOXYzine HCL 25 MG TABLET PO (21:01)
[2023-12-10] MEDS: OLANZapine 5 MG TABLET PO (21:02)
[2023-12-10] MEDS: traZODone HCL 50 MG TABLET PO (21:02)
[2023-12-11 08:00] VITALS: BP 110/58; PULSE 60; RESP 16; TEMP 37; O2SAT 98
[2023-12-11] MEDS: Nicotine 21 MG PATCH.TD24 TRANSDERMA (08:33)
[2023-12-11] MEDS: Multivitamin TABLET 1 TAB PO (08:33)
[2023-12-11] MEDS: Thiamine HCL 100 MG TABLET PO (08:33)
[2023-12-11] MEDS: Folic Acid 1 MG TABLET PO (08:33)
--- NOTE | 2023-12-11 17:41 | HO.PSYCHPN ---
Subjective Subjective Date of Service: 12/11/23 Reason For Visit: Depression, mood dysregulation Subjective Notes: Conditional Voluntary Healthcare Proxy: No Guardianship: No Medical Problems Affecting Mental Status: No Interim History: Tolerating Olanzapine. Reports that he is feeling ready to return to work. He is interested in psychotherapy and continuing medications and will follow up. Discussed the connection he has made here with how improved he feels when he has the chance to discuss what is bothering him with others and is very interested in continuing psychotherapy. Asks for a return to work letter. Medication Compliance: Yes Side effects from medications: No Attending Groups: No Review of Systems Acute medical concerns: No Medical Review of Systems: unchanged Review of Systems Review of Systems Yes all other systems are reviewed and are negative Mental Status Exam Mental Status Exam Patient Appearance: Appropriate Patient Orientation: Person, Place, Time and Situation Level of Consciousness: Alert Patient Behavior: Talkative and Good Eye Contact Mood Description: Constricted Affect Description: Constricted Patient Cognition Impaired: No Ability to Follow Directions: Good Speech Pattern: Spontaneous Speech Memory Description: Intact Hallucinations: None Delusions: Not Present Thought Process: Goal Oriented Thought Content: positive for Goal Oriented Depressive Symptoms: Increased Irritability Judgement: Good Diagnostics Vital Signs (24Hr): Vital Signs - 24 hr 12/10/23 20:00 12/11/23 08:00 Temperature 98.6 F 98.6 F Pulse Rate 69 60 Respiratory Rate 18 16 Blood Pressure 139/85 110/58 L Pulse Oximetry 99 98 Oxygen Delivery Method Room Air Room Air BMI result Body Mass Index 25.0 Labs 12/08/23 23:48 12/08/23 23:50 Labs: Laboratory Results - last 48 hr 12/10/23 08:59 Estimat Average Glucose 100 Hemoglobin A1c % 5.1 Magnesium 1.6 Triglycerides 189 H Cholesterol 191 LDL Cholesterol, Calc 95 HDL Cholesterol 59 Vitamin B12 371 Folate 5.9 TSH 2.06 Free T4 0.88 Medications Medications Current Medications Acetaminophen (Acetaminophen 325 Mg Tablet) 650 mg PO Q6H PRN PRN Reason: Headache/Pain Mild Scale (1-3) Al Hydroxide/Mg Hydroxide (Magnesium Hydrox/Alum Hydrox 30 Ml Oral.Susp) 30 ml PO Q6H PRN PRN Reason: Heartburn/Nausea Folic Acid (Folic Acid 1 Mg Tablet) 1 mg PO DAILY [facility]ARA Last Admin: 12/11/23 08:33 Dose: 1 mg Hydroxyzine HCl (Hydroxyzine Hcl 25 Mg Tablet) 25 mg PO Q6H PRN PRN Reason: Anxiety Last Admin: 12/10/23 21:01 Dose: 25 mg Magnesium Hydroxide (Milk Of Magnesia 30 Ml Oral.Susp) 30 ml PO DAILY PRN PRN Reason: Constipation Multivitamins/Vitamin C (Multivitamin Tablet) 1 tab PO DAILY [facility] Last Admin: 12/11/23 08:33 Dose: 1 tab Nicotine (Nicotine 21 Mg Patch.Td24) 21 mg TRANSDERMA DAILY [facility] Last Admin: 12/11/23 08:33 Dose: 21 mg Nicotine Polacrilex (Nicotine Polacrilex 2 Mg Gum) 4 mg BUCCAL Q2H PRN PRN Reason: Nicotine Cravings Last Admin: 12/10/23 11:54 Dose: 4 mg Olanzapine (Olanzapine 5 Mg Tablet) 5 mg PO Q4H PRN PRN Reason: agitation, aggression Olanzapine (Olanzapine 5 Mg Tablet) 5 mg PO BEDTIME [facility] Last Admin: 12/10/23 21:02 Dose: 5 mg Thiamine HCl (Thiamine Hcl 100 Mg Tablet) 100 mg PO DAILY [facility] Last Admin: 12/11/23 08:33 Dose: 100 mg Trazodone HCl (Trazodone Hcl 50 Mg Tablet) 50 mg PO BEDTIME MRX1 PRN PRN Reason: Insomnia Last Admin: 12/10/23 21:02 Dose: 50 mg Allergies Allergies Allergy/AdvReac Type Severity Reaction Status Date / Time No Known Allergies Allergy Verified 12/08/23 23:03 [No Known Allergies*] Assessment & Plan Assessment & Plan (1) Alcohol abuse: Status: Acute Code(s): F10.10 - Alcohol abuse, uncomplicated (2) Mood disorder: Status: Acute Code(s): F39 - Unspecified mood [affective] disorder Plan 32 yo male, history of mood disorder, polysubstance use disorder with reports of increasing lability, increasing intensity of mood sx. Review of bipolar disorder and medication choices with pt. Will begin a trial. Plan: Admit, CV 15 minute checks Olanzapine 5 mg HS Collateral contact with family Encourage full milieu, however, pt is not a group oriented person. 12/10: Continue regime Plans discharge 12/13/23. Reason for continued inpatient stay Substantial Risk for: rapid decompensation Time Spent With Patient Time: Total time managing care of this patient today ____ minutes.
[2023-12-11 20:00] VITALS: BP 111/77; PULSE 68; RESP 18; TEMP 36.5; O2SAT 99
[2023-12-11] MEDS: traZODone HCL 50 MG TABLET PO (21:27)
[2023-12-11] MEDS: hydrOXYzine HCL 25 MG TABLET PO (21:27)
[2023-12-11] MEDS: OLANZapine 5 MG TABLET PO (21:35)
--- NOTE | 2023-12-12 07:59 | HO.PSYCHPN ---
Subjective Subjective Date of Service: 12/12/23 Reason For Visit: Depression, mood dysregulation Interim History: Tolerating Olanzapine. Reports that he is feeling ready to return to work. He is interested in psychotherapy and continuing medications and will follow up. pt stating he is ready for discahrge plan is for dc 12/13/23 No si no HI Review of Systems Review of Systems Yes all other systems are reviewed and are negative Constitutional: Reports as per HPI Mental Status Exam Mental Status Exam Patient Appearance: Appropriate Patient Orientation: Person, Place, Time and Situation Level of Consciousness: Alert Patient Behavior: Talkative and Good Eye Contact Mood Description: Constricted Affect Description: Constricted Patient Cognition Impaired: No Ability to Follow Directions: Good Speech Pattern: Spontaneous Speech Memory Description: Intact Diagnostics Vital Signs (24Hr): Vital Signs - 24 hr 12/11/23 08:00 12/11/23 20:00 Temperature 98.6 F 97.7 F Pulse Rate 60 68 Respiratory Rate 16 18 Blood Pressure 110/58 L 111/77 Pulse Oximetry 98 99 Oxygen Delivery Method Room Air Room Air BMI result Body Mass Index 25.0 Labs 12/08/23 23:48 12/08/23 23:50 Labs: Laboratory Results - last 48 hr 12/10/23 08:59 Estimat Average Glucose 100 Hemoglobin A1c % 5.1 Magnesium 1.6 Triglycerides 189 H Cholesterol 191 LDL Cholesterol, Calc 95 HDL Cholesterol 59 Vitamin B12 371 Folate 5.9 TSH 2.06 Free T4 0.88 Medications Medications Current Medications Acetaminophen (Acetaminophen 325 Mg Tablet) 650 mg PO Q6H PRN PRN Reason: Headache/Pain Mild Scale (1-3) Al Hydroxide/Mg Hydroxide (Magnesium Hydrox/Alum Hydrox 30 Ml Oral.Susp) 30 ml PO Q6H PRN PRN Reason: Heartburn/Nausea Folic Acid (Folic Acid 1 Mg Tablet) 1 mg PO DAILY [facility] Last Admin: 12/11/23 08:33 Dose: 1 mg Hydroxyzine HCl (Hydroxyzine Hcl 25 Mg Tablet) 25 mg PO Q6H PRN PRN Reason: Anxiety Last Admin: 12/11/23 21:27 Dose: 25 mg Magnesium Hydroxide (Milk Of Magnesia 30 Ml Oral.Susp) 30 ml PO DAILY PRN PRN Reason: Constipation Multivitamins/Vitamin C (Multivitamin Tablet) 1 tab PO DAILY [facility] Last Admin: 12/11/23 08:33 Dose: 1 tab Nicotine (Nicotine 21 Mg Patch.Td24) 21 mg TRANSDERMA DAILY [facility] Last Admin: 12/11/23 08:33 Dose: 21 mg Nicotine Polacrilex (Nicotine Polacrilex 2 Mg Gum) 4 mg BUCCAL Q2H PRN PRN Reason: Nicotine Cravings Last Admin: 12/10/23 11:54 Dose: 4 mg Olanzapine (Olanzapine 5 Mg Tablet) 5 mg PO Q4H PRN PRN Reason: agitation, aggression Olanzapine (Olanzapine 5 Mg Tablet) 5 mg PO BEDTIME [facility] Last Admin: 12/11/23 21:35 Dose: 5 mg Thiamine HCl (Thiamine Hcl 100 Mg Tablet) 100 mg PO DAILY [facility] Last Admin: 12/11/23 08:33 Dose: 100 mg Trazodone HCl (Trazodone Hcl 50 Mg Tablet) 50 mg PO BEDTIME MRX1 PRN PRN Reason: Insomnia Last Admin: 12/11/23 21:27 Dose: 50 mg Allergies Allergies Allergy/AdvReac Type Severity Reaction Status Date / Time No Known Allergies Allergy Verified 12/08/23 23:03 [No Known Allergies*] Assessment & Plan Assessment & Plan (1) Alcohol abuse: Status: Acute Code(s): F10.10 - Alcohol abuse, uncomplicated (2) Mood disorder: Status: Acute Code(s): F39 - Unspecified mood [affective] disorder Plan 32 yo male, history of mood disorder, polysubstance use disorder with reports of increasing lability, increasing intensity of mood sx. Review of bipolar disorder and medication choices with pt. Will begin a trial. Plan: Admit, CV 15 minute checks Olanzapine 5 mg HS Collateral contact with family Encourage full milieu, however, pt is not a group oriented person. 12/10: Continue regime Plans discharge 12/13/23. 12/11/ continue tx plan Reason for continued inpatient stay Substantial Risk for: inability to function and rapid decompensation Time Spent With Patient Time: Total time managing care of this patient today ____ minutes.
[2023-12-12] MEDS: Folic Acid 1 MG TABLET PO (08:47)
[2023-12-12] MEDS: Nicotine 21 MG PATCH.TD24 TRANSDERMA (08:47)
[2023-12-12] MEDS: Multivitamin TABLET 1 TAB PO (08:47)
[2023-12-12] MEDS: Thiamine HCL 100 MG TABLET PO (08:47)
[2023-12-12 08:50] VITALS: BP 118/58; PULSE 51; RESP 18; TEMP 36.8; O2SAT 97
[2023-12-12] MEDS: Nicotine Polacrilex 2 MG GUM 4 MG BUCCAL ×3 (13:31→22:39)
[2023-12-12 20:00] VITALS: BP 123/61; PULSE 69; RESP 16; TEMP 36.6; O2SAT 96
[2023-12-12] MEDS: traZODone HCL 50 MG TABLET PO (21:12)
[2023-12-12] MEDS: OLANZapine 5 MG TABLET PO (21:12)
[2023-12-12] MEDS: hydrOXYzine HCL 25 MG TABLET PO (21:14)
[2023-12-13] MEDS: Folic Acid 1 MG TABLET PO (08:50)
[2023-12-13] MEDS: Multivitamin TABLET 1 TAB PO (08:50)
[2023-12-13] MEDS: Thiamine HCL 100 MG TABLET PO (08:50)
--- NOTE | 2024-01-07 14:04 | PM.PSYDC ---
DS: Providers Provider Date of Service: 12/13/23 Date of admission: 12/09/23 12:30 Date of discharge: 12/13/23 Primary care physician: Aniket Young MD Admitting clinician: Mandy Vega Attending physician on admission: Tony Constantino Consults: 12/09/23 00:47 Addiction Medicine Stat Consulting Provider: Addiction Covering Reason for consultation: etoh abuse, hx of opioid use d/o 12/09/23 16:44 Addiction Medicine Routine Consulting Provider: Addiction Covering Reason for consultation: Alcohol use - former MELYSSA Attending physician on discharge: Tony Constantino Discharging clinician: Mandy Vega DS: Diagnosis Discharge Diagnosis (1) Alcohol abuse: Status: Acute (2) Mood disorder: Status: Acute DS: Medications Discharge Medications Home Medications: Home Medications ?Medication ?Instructions ?Recorded ?Confirmed No Known Home Meds 12/09/23 12/09/23 Previous Rx's ?Medication ?Instructions ?Recorded folic acid 1 mg tablet 1 mg PO DAILY #30 tabs 12/12/23 multivitamin (Daily-Flor tablet) 1 tab PO DAILY #30 tabs 12/12/23 olanzapine 5 mg tablet 5 mg PO BEDTIME #30 tabs 12/12/23 thiamine mononitrate (vit B1) 100 100 mg PO DAILY #30 tabs 12/12/23 mg tablet Mental Status Exam Mental Status Exam Patient Appearance: Appropriate Patient Orientation: Person, Place, Time and Situation Level of Consciousness: Alert Patient Behavior: Talkative and Good Eye Contact Mood Description: Constricted Affect Description: Constricted Patient Cognition Impaired: No Ability to Follow Directions: Good Speech Pattern: Spontaneous Speech Memory Description: Intact Data Data Completed and Pending Completed studies during hospitalization [Text1]: 12/09/23 Unknown Urine clean catch - Clean Catch Midstream Urine Culture - Final DS: Summary Hospital Course Hospital Course: Admission to adult psychiatry for exacerbation of alcohol use disorder and mood disorder with symptom increase. Medications were evaluated. Olanzapine was initiated. Pt was encouraged to participate in the milieu. He found that individual sessions of psychotherapy were most helpful and will continue as an out patient. He discussed alcohol use to medicate mood and again found that psychotherapy and medicine therapy were useful in helping this symptom. Aftercare referrals were placed and pt reported he believes his goals were met and he requested discharge to return to his family and work. Time spent discussing smoking cessation with patient: 3 to 10 minutes Status at Discharge Functional status at discharge: independent ambulation Overall status at discharge: patient is progressing back to baseline Time Spent with Patient Time attestation: Total time managing care of this patient today ____ minutes. Time spent: Less than 30 minutes Discharge Plan Discharge Anticipated Discharge Date/Time: 12/13/23 12:00 Patient Disposition: Home, Self-Care Discharge Diagnosis: Mood Disorder Alcohol Abuse Referrals: [facility] [Other] - 12/17/23 3:00 pm (Referral for outpatient therapy services Initial Diagnostic evaluation. Appointment [facility] in person at [facility] in [place], [place] : Psychiatry [Other] - 01/14/24 11:00 am (referral for psychiatric medication management services appointment is by tele-health ) [facility]: Peri Miguel (psychiatry) [Other] - 02/15/24 10:00 am (medication management appointment. Appointment is by tele-health ) Aniket Young MD [Primary Care Provider] - 1 Week Discharge Medications: New multivitamin [Daily-Flor] Tablet 1 tab PO DAILY Qty: 30 0RF olanzapine 5 mg Tablet 5 mg PO BEDTIME Qty: 30 0RF folic acid 1 mg Tablet 1 mg PO DAILY Qty: 30 0RF thiamine mononitrate (vit B1) 100 mg Tablet 100 mg PO DAILY Qty: 30 0RF No Action No Known Home Meds Discharge Orders: Discharge Order (Routine); Ordered 12/13/23 Ordered By: Mandy Vega Diet: Advance to usual diet Activity on Discharge: As tolerated Stand Alone Forms: Patient Portal Discharge page, Community Support Print Language: Cymro Care Plan Goals: Mood and Behavioral Stabilization Sobriety Health Concerns: Mood and Behavioral Stabilization Sobriety Plan of Treatment: Attend scheduled appointments Take medications as directed Call/Return as needed Assessment: Scheduled discharge. Discharge Date/Time: 12/13/23 09:40
== END 2023-12-13 09:40 | disposition home or self-care (01) | DRG 753 ==
LOC: HO.ED 12-09 01:56 → HO.PM5 12-09 12:33
PROVIDERS: Physician Assistant Medical; Admitting Provider Clinical Nurse Specialist Psychiatric/Mental Health, Adult; Emergency Provider Emergency Medicine; PCP Internal Medicine; Visit Provider Clinical Nurse Specialist Psychiatric/Mental Health, Adult
DX: F39 Unspecified mood [affective] disorder (principal); R45.851 Suicidal ideations; F10.10 Alcohol abuse, uncomplicated; F17.210 Nicotine dependence, cigarettes, uncomplicated; Z71.6 Tobacco abuse counseling; Y90.8 Blood alcohol level of 240 mg/100 ml or more; F19.90 Other psychoactive substance use, unspecified, uncomplicated; Z79.899 Other long term (current) drug therapy
CPT/HCPCS: 36415; 80048; 80061; 80076; 80143; 80179; 80307; 81001; 81003; 82607; 82746; 83036; 83735; 84439; 84443; 85025; 87086; 93005; 99285; S9485

== ENCOUNTER 2023-12-09 12:30 | Outpatient (BNV) | payer BC, SELFPAY | END 2023-12-10 13:23 | PROVIDERS: Admitting Provider Clinical Nurse Specialist Psychiatric/Mental Health, Adult; Emergency Provider Emergency Medicine; PCP Internal Medicine; Visit Provider Internal Medicine Cardiovascular Disease | DX: R00.1 Bradycardia, unspecified (principal) | CPT/HCPCS: 93010 ==

== ENCOUNTER → 2023-12-09 12:30 | Outpatient (BNV) | payer BC, SELFPAY | PROVIDERS: Admitting Provider Clinical Nurse Specialist Psychiatric/Mental Health, Adult; Emergency Provider Emergency Medicine; PCP Internal Medicine; Visit Provider Clinical Nurse Specialist Psychiatric/Mental Health, Adult | DX: F39 Unspecified mood [affective] disorder (principal); F10.10 Alcohol abuse, uncomplicated | CPT/HCPCS: 99222; 99231; 99238 ==